=== PATIENT | male | born 1935 | race African-American/Black ===

== ENCOUNTER → 2017-02-08 | Outpatient (CLI) | payer MEDICARE, BC | LOC: OD 08:47 | PROVIDERS: ATTEND Urology | DX: N40.1 Benign prostatic hyperplasia with lower urinary tract symptoms (principal); R97.20 Elevated prostate specific antigen [PSA] | CPT/HCPCS: 36415; 84153 ==

== ENCOUNTER 2017-08-20 12:11 | Inpatient (IN) | payer MEDICARE, BC ==
--- NOTE | 2017-08-20 12:46 | ER Document Report ---
ED General - General Chief Complaint: S/S of Possible Stroke Stated Complaint: PROBABLE STROKE Time Seen by Provider: 08/20/17 12:42 Notes: Patient experienced a witnessed collapse with bystander CPR this morning. Patient and his had just arrived home from driving back from [place]. Patient slept through the entire trip back for 3 hours. When they arrived here in [place], they went to get out of the car and the patient fell backwards unresponsive. Bystander CPR was initiated and EMS was called. EMS reports that when they arrived on the scene, patient was having agonal respirations and further CPR was performed, but no medications were given as the patient awakened and responded to EMS. Patient's says that he has not been feeling well all week saying that he is been tired. He had not complained of any pain such as headache, chest pain, abdominal pain, etc. Patient does have COPD and is on home oxygen at 2 L and had just increased his oxygen to 4 L because he was having more difficulty breathing than usual. Patient has history of hypertension, but according to the , does not have any heart disease, diabetes, or other major illnesses. TRAVEL OUTSIDE OF THE [place] IN LAST 30 DAYS: No - Related Data Allergies/Adverse Reactions: No Known Allergies Allergy (Verified 01/10/14 09:13) Home Medications: Current Home Medications Albuterol Sulfate [Proair Hfa Inhalation Aerosol 8.5 gm Mdi] puff IH PRN [History] Fluticasone/Salmeterol [Advair 500-50 Diskus 28 Dose] 1 inh IH 08/20/17 [History ] Tamsulosin HCl [Flomax 0.4 mg Cap.sr] 0.4 mg PO DAILY 08/20/17 [History] Tiotropium [place] [Spiriva] cap IH 08/20/17 [History] Past Medical History - Social History Smoking Status: Former Smoker - Also has asbestosis and on home O2, usually at 2 L. Family History: Reviewed & Not Pertinent - Past Medical History Cardiac Medical History: Reports: Hx Hypertension - CONTROLLED Denies: Hx Congestive Heart Failure, Hx Coronary Artery Disease, Hx Heart Attack Pulmonary Medical History: Reports: Hx Bronchitis, Hx COPD, Other - Asbestosis Endocrine Medical History: Denies: Hx Diabetes Mellitus Type 1, Hx Diabetes Mellitus Type 2 Musculoskeltal Medical History: Reports Hx Arthritis - Immunizations Hx Diphtheria, Pertussis, Tetanus Vaccination: Yes Review of Systems - Review of Systems -: Yes ROS unobtainable due to patient's medical condition - Patient is unable to answer questions at this time. Physical Exam - Vital signs Vitals: Pulse Resp BP Pulse Ox 77 18 170/71 H 100 08/20/17 12:11 08/20/17 12:11 08/20/17 12:11 08/20/17 12:11 Interpretation: Normal - Notes Notes: PHYSICAL EXAMINATION: GENERAL: Patient has dried blood scattered around his nose and right cheek area. Vital signs are all essentially normal now.. HEAD: Patient complains of pain in the occipital region of the scalp. That area has some very minimal swelling of the soft tissues of the scalp with some abrasion superficially externally. No cuts or other injury that requires sutures etc. EYES: Pupils equal round and reactive to light, extraocular movements intact. NECK: Normal range of motion, supple. No bruits heard. LUNGS: Breath sounds clear and equal bilaterally. HEART: Regular rate and rhythm without murmurs. ABDOMEN: Soft, nontender. No guarding or rebound. No masses felt. No pulsatile masses. No bruits heard. Rectal exam shows an enlarged prostate which is not tender. Stool is yellow. Guaiac sent. BACK: No tenderness throughout entire back. EXTREMITIES: Normal range of motion without pain. Negative Homans bilaterally. NEUROLOGICAL: Patient is confused, asking where he is at. Does not have any memory of what happened to him other than he does remember driving in the car back here from [place] this morning. He does not remember anything following his collapse. Can move all 4 extremities equally. 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 Gait not tested. SKIN: Warm, dry, no rashes. Course - Re-evaluation Re-evalutation: 08/20/17 14:37 Stool guaiac is negative. 08/20/17 14:40 Patient's hemoglobin was 7.8. Packed cells, 2 units, ordered. Spoke with Dr. Jones and patient will be admitted to ICU. 08/20/17 15:05 Patient has had an ultrasound of his abdomen ordered at the suggestion of Dr. Moncada. Nurse reports that patient has coughed up some blood. We removed his nasal trumpet which has blood in it side of it and I am fairly certain that is likely the cause of the patient's blood that we have seen. It was only 1 small amount of red blood produced. He is not having any respiratory difficulty and is not vomiting. - Vital Signs Vital signs: Temp Pulse Resp BP Pulse Ox 98.1 F 77 23 H 176/78 H 95 08/20/17 13:15 08/20/17 12:11 08/20/17 14:00 08/20/17 13:31 08/20/17 14:00 - Laboratory Result Diagrams: 08/20/17 11:37 08/20/17 11:37 Laboratory results interpreted by me: 08/20/17 08/20/17 08/20/17 11:37 11:37 11:37 RBC 3.91 L Hgb 7.8 L Hct 26.3 L MCV 67 L MCH 19.9 L MCHC 29.6 L RDW 19.9 H Glucose 122 H Creatine Kinase 298 H CK-MB (CK-2) 5.33 H Crossmatch 08/20/17 14:09 RBC Hgb Hct MCV MCH MCHC RDW Glucose Creatine Kinase CK-MB (CK-2) Crossmatch See Detail - Diagnostic Test Radiology reviewed: Image reviewed - CTA is negative., Reports reviewed Radiology results interpreted by me: 08/20/17 14:37 Chest x-ray is essentially normal. Critical Care Note - Critical Care Note Total time excluding time spent on procedures (mins): 60 Discharge - Discharge Clinical Impression: Syncope, Anemia, COPD (chronic obstructive pulmonary disease) Condition: Serious Disposition: ADMITTED INPATIENT Admitting Provider: Jones Unit Admitted: [facility]
--- NOTE | 2017-08-20 12:53 | RADIOLOGY REPORT (SQ) ---
EXAM DESCRIPTION: CT HEAD WITHOUT COMPLETED DATE/TIME: 08/20/2017 12:32 pm REASON FOR STUDY: stroke COMPARISON: 04/03/2011. TECHNIQUE: Axial images acquired through the brain without intravenous contrast. Images reviewed wi th bone, brain and subdural windows. Images stored on PACS. All CT scanners at this facility use dose modulation, iterative reconstruction, and/or weight based d osing when appropriate to reduce radiation dose to as low as reasonably achievable (ALARA). [facility]: Dose Right [facility]: CareDose [facility]: Dose Right [facility]: Teradose 4D [facility]: Smart Indigo Identityware RADIATION DOSE: CT Rad equipment meets quality standard of care and radiation dose reduction techniq ues were employed. CTDIvol: 64.6 mGy. DLP: 1163 mGy-cm. mGy. LIMITATIONS: None. FINDINGS: VENTRICLES: Normal size and contour. CEREBRUM: No masses. No hemorrhage. No midline shift. No evidence for acute infarction. Mild spott y low density areas in the white matter consistent with chronic small vessel disease. 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 CEREBELLUM: No masses. No hemorrhage. No alteration of density. No evidence for acute infarction. EXTRAAXIAL SPACES: No fluid collections. No masses. ORBITS AND GLOBE: No intra- or extraconal masses. Normal contour of globe without masses. CALVARIUM: No fracture. PARANASAL SINUSES: No fluid or mucosal thickening. SOFT TISSUES: No mass or hematoma. OTHER: No other significant finding. IMPRESSION: 1. Chronic appearing intracranial changes. No acute abnormality. EVIDENCE OF ACUTE STROKE: NO. Pertinent positive or negative findings of the imaging study reported as a CRITICAL EXAM to ER PIEDADI KLAUDIA at11:49 on 08/20/2017. Category of Critical Exam: Stroke alert. COMMENT: Quality ID # [id number]: Final reports with documentation of one or more dose reduction techniques (e.g., Automated exposure control, adjustment of the mA and/or kV according to patient size, use of iterative reconstruction technique) TECHNICAL DOCUMENTATION: JOB ID: [id number]- All Rights Reserved
--- NOTE | 2017-08-20 12:56 | RADIOLOGY REPORT (SQ) ---
EXAM DESCRIPTION: CHEST SINGLE VIEW COMPLETED DATE/TIME: 08/20/2017 12:39 pm REASON FOR STUDY: stroke COMPARISON: None. NUMBER OF VIEWS: One view. TECHNIQUE: Single frontal radiographic view of the chest acquired. LIMITATIONS: None. FINDINGS: LUNGS AND PLEURA: No opacities, masses or pneumothorax. No pleural effusion. MEDIASTINUM AND HILAR STRUCTURES: No masses. Contour normal. HEART AND VASCULAR STRUCTURES: Heart normal in size. Normal vasculature. BONES: No acute findings. HARDWARE: None in the chest. OTHER: No other significant finding. IMPRESSION: NO SIGNIFICANT RADIOGRAPHIC FINDING IN THE CHEST. TECHNICAL DOCUMENTATION: JOB ID: [id number] [employer]- All Rights Reserved
[2017-08-20 13:02] LABS: PROTHROMBIN TIME 14.3 SEC (11.4-15.4)
[2017-08-20 13:12] LABS: HEMATOCRIT 26.3 % (37.9-51.0); HGB HCT DIFFERENCE -2.9; MEAN CORPUSCULAR HEMOGLOBIN 19.9 pg (27.0-33.4); MEAN CORPUSCULAR HGB CONC 29.6 g/dL (32.0-36.0); MEAN CORPUSCULAR VOLUME 67 fl (80-97); RED BLOOD COUNT 3.91 10^6/uL (4.35-5.55); RED CELL DISTRIBUTION WIDTH 19.9 % (11.5-14.0); WHITE BLOOD COUNT 7.7 10^3/uL (4.0-10.5)
[2017-08-20 13:15] LABS: ALANINE AMINOTRANSFERASE 32 U/L (21-72); ALBUMIN 4.4 g/dL (3.5-5.0); ALKALINE PHOSPHATASE 54 U/L (38-126); ANION GAP 12 (5-19); ASPARTATE AMINO TRANSFERASE 30 U/L (17-59); BILIRUBIN,DIRECT 0.4 mg/dL (0.0-0.4); BILIRUBIN,TOTAL 0.7 mg/dL (0.2-1.3); BLOOD UREA NITROGEN 14 mg/dL (7-20); CARBON DIOXIDE 27 mmol/L (22-30); CHLORIDE 106 mmol/L (98-107); CREATINE KINASE 298 U/L (55-170); GLUCOSE 122 mg/dL (75-110); SODIUM 144.7 mmol/L (137-145); TOTAL PROTEIN 7.3 g/dL (6.3-8.2)
[2017-08-20 13:19] LABS: HEMOGLOBIN 7.8 g/dL (13.5-17.0)
[2017-08-20 13:29] LABS: CREATINE KINASE MB 5.33 ng/mL (<4.55); TROPONIN I < 0.012 ng/mL
[2017-08-20 13:30] LABS: BASOPHILS % (MANUAL) 0 % (0-2); EOSINOPHILS % (MANUAL) 0 % (0-6); LYMPHOCYTES % (MANUAL) 24 % (13-45); TOTAL CELLS COUNTED 100
[2017-08-20 13:32] LABS: ANISOCYTOSIS 2+; HYPOCHROMASIA 1+; MICROCYTOSIS 2+; OVALOCYTES SLIGHT; POIKILOCYTOSIS 1+; TARGET CELLS SLIGHT; TOXIC GRANULATION SLIGHT
[2017-08-20] MEDS ORDERED: NORMAL SALINE 250 ML IV PRN (13:39)
--- NOTE | 2017-08-20 14:07 | EKG REPORT ---
SEVERITY:- ABNORMAL ECG - SINUS RHYTHM LAD, CONSIDER LEFT ANTERIOR FASCICULAR BLOCK : Confirmed by: Isis Lombardi MD 20-Aug-2017 14:06:59
--- NOTE | 2017-08-20 14:13 | RADIOLOGY REPORT (SQ) ---
EXAM DESCRIPTION: CTA CHEST COMPLETED DATE/TIME: 08/20/2017 2:01 pm REASON FOR STUDY: Collapsed COMPARISON: 2016. Recent radiographs. TECHNIQUE: CT scan of the chest performed using helical scanning technique with dynamic intravenous contrast injection. Images reviewed with lung, soft tissue and bone windows. Reconstructed coronal and sagittal MPR images reviewed. Additional 3 dimensional post-processing performed to develop Maximal Intensity Projection images ([place] P). All images stored on PACS. All CT scanners at this facility use dose modulation, iterative reconstruction, and/or weight based d osing when appropriate to reduce radiation dose to as low as reasonably achievable (ALARA). [facility]: Dose Right [facility]: CareDose [facility]: Dose Right [facility]: Teradose 4D [facility]: TareasPlus CONTRAST TYPE AND DOSE: contrast/concentration: Isovue 370.00 mg/ml; Total Contrast Delivered: 74.0 ml; Total Saline Delivered: 80.1 ml Contrast bolus adequate for pulmonary arteries and aorta. RENAL FUNCTION: Creatinine 0.9 RADIATION DOSE: CT Rad equipment meets quality standard of care and radiation dose reduction techniq ues were employed. CTDIvol: 21.6 - 39.7 mGy. DLP: 941 mGy-cm. . LIMITATIONS: Moderately limiting motion artifact. FINDINGS: LUNGS AND PLEURA: COPD with upper lobe bullous emphysema. Motion artifact and scarring. Trace dependent pleural fluid may be present. AORTA AND GREAT VESSELS: No aneurysm. Contrast bolus not optimized for the aorta. HEART: No pericardial effusion. Mild to moderate coronary calcification. PULMONARY ARTERIES: No embolus detected. Peripheral lower lobe branches poorly assessed due to motio n. HILAR AND MEDIASTINAL STRUCTURES: No identified masses or abnormal nodes. HARDWARE: None in the chest. UPPER ABDOMEN: No significant findings. Limited exam. THYROID AND OTHER SOFT TISSUES: No masses. No adenopathy. BONES: No acute or significant finding. 3D MIPS: Confirm above findings. OTHER: No other significant finding. IMPRESSION: 1. Limiting motion. 2. COPD. 3. No gross pulmonary embolus. COMMENT: Quality ID # [id number]: Final reports with documentation of one or more dose reduction techniques (e.g., Automated exposure control, adjustment of the mA and/or kV according to patient size, use of iterative reconstruction technique) TECHNICAL DOCUMENTATION: JOB ID: [id number]- All Rights Reserved
--- NOTE | 2017-08-20 16:06 | RADIOLOGY REPORT (SQ) ---
EXAM DESCRIPTION: U/S ABDOMEN COMPLETE W/DOPPLER COMPLETED DATE/TIME: 08/20/2017 3:47 pm REASON FOR STUDY: Collapsed, post arrest,? Abdominal distention COMPARISON: None. TECHNIQUE: Dynamic and static grayscale images acquired of the abdomen and recorded on PACS. Nbao danny selected color Doppler and spectral images recorded. LIMITATIONS: Body habitus. Patient cooperation issues. Labored breathing. FINDINGS: PANCREAS: Not seen. LIVER: No masses. Echotexture normal. LIVER VASCULATURE: Normal directional flow of the main portal vein and hepatic veins. GALLBLADDER: No stones. Normal wall thickness. No pericholecystic fluid. ULTRASOUND-DETECTED MORGAN'S SIGN: Negative. INTRAHEPATIC DUCTS AND COMMON DUCT: CBD and intrahepatic ducts normal caliber. No filling defects. INFERIOR VENA CAVA: Normal flow. AORTA: No aneurysm. RIGHT KIDNEY:Normal size. Normal echogenicity. No solid or suspicious masses. No hydronephrosis. No c alcifications. LEFT KIDNEY: Toe Puncher notes a small echogenic focus in the cortex at the midpole. Recent CT ches t fails to demonstrate any lesion here, however. SPLEEN: Not imaged. PERITONEAL AND PLEURAL SPACES: No ascites or effusions. OTHER: No other significant finding. IMPRESSION: Limited grossly negative study without acute or suspicious abdominal abnormality visuali zed at ultrasound. TECHNICAL DOCUMENTATION: JOB ID: [id number] [employer]- All Rights Reserved
[2017-08-20] MEDS: IPRATROPIUM/ALBUTEROL 0.5-2.5 MG/3 ML AMPUL NEB PRN (17:19)
--- NOTE | 2017-08-20 17:21 | PDOC CONSULTATION ---
Consultation Consult Date: 08/20/17 Attending physician:: NAOMI PEÑALOZA Consult reason:: Status post cardiorespiratory arrest History of Present Illness Admission Date/PCP: 08/20/17 14:49 NAOMI PEÑALOZA MD Patient complains of: Status post cardiorespiratory arrest History of Present Illness: Patient experienced a witnessed collapse with bystander CPR this morning. Patient and his had just arrived home from driving back from [place]. Patient slept through the entire trip back for 3 hours. When they arrived here in [place], they went to get out of the car and the patient fell backwards unresponsive. Bystander CPR was initiated and EMS was called. EMS reports that when they arrived on the scene, patient was having agonal respirations and further CPR was performed, but no medications were given as the patient awakened and responded to EMS. Patient's says that he has not been feeling well all week saying that he is been tired. He had not complained of any pain such as headache, chest pain, abdominal pain, etc. Patient does have COPD and is on home oxygen at 2 L and had just increased his oxygen to 4 L because he was having more difficulty breathing than usual. Patient has history of hypertension, but according to the , does not have any heart disease, diabetes, or other major illnesses. This history was reviewed and confirmed. Patient claims that he recently saw a veterinarian either at [facility] or at [facility] and had a stress test performed. Patient does have history of loud habitual snoring. He has never been diagnosed to have sleep apnea. Patient denied any prior history of cardiac problems. He does have history of COPD and asbestosis. He is on some home oxygen. Patient had no nausea vomiting or diaphoresis or any feeling of palpitations either preceding or post episode. There is no post ictal state noted not any convulsions noted. There is no history of prior seizure disorder. Past Medical History Cardiac Medical History: Reports: Hypertension - CONTROLLED Denies: Congestive Heart Failure, Coronary Artery Disease, Myocardial Infarction Pulmonary Medical History: Reports: Bronchitis, Chronic Obstructive Pulmonary Disease (COPD), Other - Asbestosis Denies: Asthma, Pneumonia Neurological Medical History: Denies: Seizures Endocrine Medical History: Denies: Diabetes Mellitus Type 1, Diabetes Mellitus Type 2 GI Medical History: Denies: Hepatitis, Hiatal Hernia Musculoskeltal Medical History: Reports: Arthritis Psychiatric Medical History: Denies: Depression Hematology: Reports: Anemia - TAKES IRON Denies: Sickle Cell Disease Past Surgical History Past Surgical History: Denies: Pacemaker Social History Information Source: Relative Smoking Status: Former Smoker - Also has asbestosis and on home O2, usually at 2 L. Frequency of Alcohol Use: None Hx Recreational Drug Use: No Hx Prescription Drug Abuse: No - Advance Directive Resuscitation Status: Full Code Surrogate healthcare decision maker:: Patient's Family History Family History: Hypertension Parental Family History Reviewed: Yes Children Family History Reviewed: Yes Sibling(s) Family History Reviewed.: Yes Medication/Allergy Home Medications: Albuterol Sulfate [Proair Hfa Inhalation Aerosol 8.5 gm Mdi] 2 puff IH Q6HP PRN 08/20/17 Fluticasone/Salmeterol [Advair 500-50 Diskus 28 Dose] 1 inh IH Q12 08/20/17 Tamsulosin HCl [Flomax 0.4 mg Cap.sr] 0.4 mg PO DAILY 08/20/17 Tiotropium [place] [Spiriva] 2 cap IH DAILY 08/20/17 Allergies/Adverse Reactions: No Known Allergies Allergy (Verified 01/10/14 09:13) Review of Systems Review of Systems: Please see history of present illness and past medical history as wall. Constitutional: No fever or chills reported. Head : No recent chronic headaches, recent head injury. Eyes: No recent eye pain, diplopia, redness, discharge, acute visual changes. Ears: No recent chronic ear pain, acute hearing loss, ear discharge. Oral cavity: No recent ulcerations, bleeding, oral cavity discomfort. Neck: No recent acute neck pain reported. Hematologic: No recent easy bruising or bleeding or hematologic malignancy reported. Lymphatic: No recent lymphatic malignancy, chronic lymphadenopathy reported yet Cardiovascular system review: See history of present illness. Respiratory system review: No recent chronic cough, hemoptysis, blood clots in the lungs reported. Shortness of breath on exertion. Patient has history of COPD and asbestosis on chronic oxygen. Gastrointestinal system review: Negative for any recent acute or chronic abdominal pain, hematemesis, melena, recent change in bowel habits. Genitourinary system review: No recent acute or chronic hematuria, flank pain, UTI etc. reported. Skin system review: Negative for any recent abnormal bruising, no rash, no pruritus reported. Neurologic: No prior history of strokes, mini strokes, seizure disorder. Psychologic: No history of major psychosis or major depression reported. Musculoskeletal: Minor aches and pains reported. No acute joint swelling reported. Endocrine: No recent polyuria, polydipsia, recent heat or cold intolerance. Physical Exam Vital Signs: Temp Pulse Resp BP Pulse Ox 98.1 F 77 20 170/72 H 100 08/20/17 13:15 08/20/17 15:00 08/20/17 16:44 08/20/17 15:45 08/20/17 16:44 Exam: GENERAL: well-nourished and in no acute distress. Alert and oriented x3 HEAD: Atraumatic, normocephalic. EYES: Pupils equal round and reactive to light, extraocular movements intact, sclera anicteric, conjunctiva are normal. ENT: TMs normal, nares patent, oropharynx clear without exudates. Moist mucous membranes. No oral ulcerations or bleeding gums noted NECK: supple without lymphadenopathy. Trachea is central. No cervical or axillary lymphadenopathy noted. Carotids are 2+, JVD WNL LUNGS: Respiration seems nonlabored, no significant accessory muscle action noted. Breath sounds clear to auscultation bilaterally and equal noted. No wheezes rales or rhonchi noted. No significant dullness noted on percussion. CHEST: Palpation of the chest wall shows no significant chest wall tenderness. No other significant abnormalities noted. 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 ABDOMEN: Soft, no significant tenderness appreciated, normoactive bowel sounds. No guarding, no rebound. No rigidity noted . No masses appreciated. EXTREMITIES: Pedal pulses are 1-2+, no calf tenderness noted. No clubbing or cyanosis.trace pedal edema noted NEUROLOGICAL: Focused neurological exam showed no significant neurologic deficit. Normal speech, no focal weakness appreciated. PSYCH: Normal mood, normal affect. Judgment and insight within normal limits. SKIN: No significant ecchymosis, rash, ulcerations or signs of pruritus noted. MUSCULOSKELETAL EXAM: No significant joint swelling noted. Results EKG Comments: Sinus rhythm, no acute ST-T wave changes noted. Impressions: Chest X-Ray 08/20/17 12:17 IMPRESSION: NO SIGNIFICANT RADIOGRAPHIC FINDING IN THE CHEST. Head CT 08/20/17 12:17 IMPRESSION: 1. Chronic appearing intracranial changes. No acute abnormality. EVIDENCE OF ACUTE STROKE: NO. Pertinent positive or negative findings of the imaging study reported as a CRITICAL EXAM to ER PROVIDER at11:49 on 08/20/2017. Category of Critical Exam: Stroke alert. Chest/Abdomen CTA 08/20/17 13:08 IMPRESSION: 1. Limiting motion. 2. COPD. 3. No gross pulmonary embolus. Abdomen Ultrasound 08/20/17 14:44 IMPRESSION: Limited grossly negative study without acute or suspicious abdominal abnormality visualized at ultrasound. Assessment & Plan - Diagnosis (1) History of successful cardiopulmonary resuscitation Is this a current diagnosis for this admission?: Yes (2) Syncope Qualifiers: Syncope type: unspecified Qualified Code(s): R55 - Syncope and collapse Is this a current diagnosis for this admission?: Yes (3) COPD exacerbation Is this a current diagnosis for this admission?: Yes (4) Anemia Qualifiers: Anemia type: unspecified type Qualified Code(s): D64.9 - Anemia, unspecified Is this a current diagnosis for this admission?: Yes - Notes Notes: History of successful CPR: Patient had bystander CPR following a syncopal spell. Patient was noted to have agonal respiration per history. Patient currently is stable and seems alert and oriented. Syncope: Exact etiology not clear but could be multiple including orthostatic hypotension, cardiac dysrhythmia, respiratory related since patient has severe COPD. At this point will recommend observation and cardiac monitoring in the unit. COPD exacerbation: Continue home therapy oxygen supplementation and other therapy. May consider pulmonary evaluation. Anemia: Patient had drop in hemoglobin. Exact etiology not clear. I am told by the ER physician that stool guaiac was negative. Have recommended that patient have a abdominal ultrasound to rule out any internal bleed. 2D echo results reviewed. It showed RV enlargement but LVEF seems relatively well-preserved. - Time Time Spent: 30 to 50 Minutes - CODE STATUS was discussed, patient remains full code. Surrogate decision-maker patient spouse. Multiple medical problems were addressed. More than 50% of the time spent coordinating care, discussing management plans with involved caregivers. Management plans discussed with involved personnels. Medical decision making was of moderate to high complexity , patient's has multiple comorbidities. Medications reviewed and adjusted accordingly: Yes
--- NOTE | 2017-08-20 17:38 | XCELERA REPORT ---
[address] [address] Transthoracic Echocardiogram Report Name: BROCK MORGAN Age: 82 yrs Gender: Male : 1935 Patient Status: Inpatient Patient Location: [address] Study Date: 08/20/2017 02:25 PM Height: 70 in Weight: 180 lb BSA: 2.0 m2 Procedure: A complete two-dimensional transthoracic echocardiogram was performed (2D, M-mode, spectral and color flow Doppler). The study was technically difficult with many images being suboptimal in quality. Reason For Study: syncope Ordering Physician: BART GILBERT Performed By: Jennifer Aguilar Interpretation Summary The study was technically difficult with many images being suboptimal in quality. The left ventricular ejection fraction is normal. There is mild concentric left ventricular hypertrophy. The left ventricle is grossly normal size. Doppler measurements suggest pseudonormalized left ventricular relaxation, which is associated with grade II/IV or mild to moderate diastolic dysfunction Wall motion cannot be accurately commented on, but no definite regional wall motion abnormalities noted. The right ventricle is borderline dilated. The right ventricular systolic function is normal. The right atrium is mildly dilated. The left atrial size is normal. There is a trace amount of mitral regurgitation There is no mitral valve stenosis. No aortic regurgitation is present. There is no aortic valve stenosis There is a trace to mild amount of tricuspid regurgitation There is mild pulmonary hypertension by echo Right ventricular systolic pressure is estimated to be elevated at 30- 40mmHg. The aortic root is not well visualized. The inferior vena cava was not well visualized Minimal pericardial effusion. MMode/2D Measurements & Calculations RVDd: 3.3 cm LVIDd: 3.9 cm FS: 37.6 % Ao root diam: 3.1 cm IVSd: 1.2 cm LVIDs: 2.5 cm EDV(Teich): 67.7 ml LVPWd: 1.2 cm ESV(Teich): 21.5 ml Ao root area: 7.4 cm2 EF(Teich): 68.2 % LA dimension: 2.4 cm LVOT diam: 2.0 cm LVOT area: 3.3 cm2 Doppler Measurements & Calculations MV E max kanwal: MV P1/2t max kanwal: Ao V2 max: LV V1 max P.6 cm/sec 100.0 cm/sec 149.4 cm/sec 7.1 mmHg MV A max kanwal: MV P1/2t: 63.7 msec Ao max PG: LV V1 max: 105.5 cm/sec MVA(P1/2t): 3.5 cm2 8.9 mmHg 133.3 cm/sec MV E/A: 0.95 MV dec slope: PANKAJ(V,D): 2.9 cm2 459.6 cm/sec2 PA V2 max: TR max kanwal: 106.1 cm/sec 276.9 cm/sec PA max PG: TR max P.7 mmHg 4.5 mmHg Left Ventricle The left ventricle is grossly normal size. There is mild concentric left ventricular hypertrophy. The left ventricular ejection fraction is normal. Doppler measurements suggest pseudonormalized left ventricular relaxation, which is associated with grade II/IV or mild to moderate diastolic dysfunction. Wall motion cannot be accurately commented on, but no definite regional wall motion abnormalities noted. Right Ventricle The right ventricle is borderline dilated. There is normal right ventricular wall thickness. The right ventricular systolic function is normal. Atria The right atrium is mildly dilated. The left atrial size is normal. Interarterial septum not well visualized and not well dopplered. Cannot comment on ASD/PFO presence. Mitral Valve There is mild mitral leaflet calcification. There is no mitral valve stenosis. There is a trace amount of mitral regurgitation. Aortic Valve The aortic valve is not well visualized secondary to technical limitations. There is no aortic valve stenosis. No aortic regurgitation is present. Tricuspid Valve The tricuspid valve is not well visualized secondary to technical limitations. There is no tricuspid stenosis. There is a trace to mild amount of tricuspid regurgitation. There is mild pulmonary hypertension by echo. Right ventricular systolic pressure is estimated to be elevated at 30-40mmHg. Pulmonic Valve The pulmonic valve is not well visualized. Great Vessels The aortic root is not well visualized. The inferior vena cava was not well visualized. Effusions Minimal pericardial effusion. : BART GILBERT > Jeremy Moncada
[2017-08-20 17:48] LABS: STAIN REACTIVITY CHECK ACCEPTABLE
[2017-08-20 18:19] LABS: TROPONIN I < 0.012 ng/mL
[2017-08-20] MEDS: ACETAMINOPHEN 325 MG TABLET PO PRN (18:40)
[2017-08-20] MEDS: NORMAL SALINE 1000 ML 1,000 ML IV PRN ×2 (18:41→21:30)
[2017-08-20 18:55] LABS: FERRITIN 4.62 ng/mL (17.9-464.0)
--- NOTE | 2017-08-20 19:02 | RADIOLOGY REPORT (SQ) ---
EXAM DESCRIPTION: MRI HEAD WITHOUT COMPLETED DATE/TIME: 08/20/2017 4:19 pm REASON FOR STUDY: Syncope COMPARISON: Noncontrast head CT 08/20/2017 TECHNIQUE: Multiplanar imaging includes non-contrasted T1, T2, FLAIR, and diffusion with ADC map seq uences. Images stored on PACS. LIMITATIONS: None. FINDINGS: ANATOMY: No anomalies. Normal vascular flow voids. Pituitary fossa normal. CSF SPACES: Mild central and peripheral prominence. No hemorrhage. CEREBRUM: Right occipital encephalomalacia is present with adjacent T2 prolongation, consistent with sequela of remote ischemic injury. Scattered foci of periventricular and subcortical white matter T2 prolongation is consistent with background of chronic microvascular ischemic change. Negron- white ma tter differentiation are otherwise normal. Mild central on peripheral volume loss consistent with ag e-related involutional change. No hemorrhage. POSTERIOR FOSSA: No signal alteration. No hemorrhage. No edema, masses or mass effect. Internal bakari tory canals, cerebello-pontine angles, mastoids normal. DIFFUSION IMAGING: Negative for acute or sub-acute infarction. ORBITS: No masses. Globes normal. PARANASAL SINUSES: Scant fluid is seen within the right maxillary sinus scattered right ethmoid opac ities are present. OTHER: No other significant finding. IMPRESSION: Right occipital encephalomalacia consistent with sequela of remote ischemic injury. Kimberley kground of chronic microvascular and age-related involutional change. EVIDENCE OF ACUTE STROKE: NO. TECHNICAL DOCUMENTATION: JOB ID: [id number] [employer]- All Rights Reserved
[2017-08-20 19:25] LABS: FOLATE 7.17 ng/mL (>2.76)
[2017-08-20] MEDS: HEPARIN SOD (PORCINE) 5,000 UNIT/ML 1 ML SYRINGE SUBCUT SCH (21:04)
[2017-08-20] MEDS: OXYCODONE HCL IR 5 MG TABLET PO PRN (21:05)
[2017-08-20] MEDS: PANTOPRAZOLE SODIUM 40 MG VIAL IV SCH (21:05)
[2017-08-20] MEDS: FLUTICASONE/SALMETEROL DISKUS 500-50 MCG/DOSE IH SCH (21:06)
[2017-08-20] MEDS ORDERED: FAMOTIDINE INJ/PF 20 MG/2 ML SDV IV SCH (22:00)
[2017-08-21 00:04] LABS: TROPONIN I < 0.012 ng/mL
[2017-08-21] MEDS: ACETAMINOPHEN 325 MG TABLET PO PRN (00:20)
[2017-08-21] MEDS: OXYCODONE HCL IR 5 MG TABLET PO PRN ×2 (04:33→14:19)
[2017-08-21 05:29] LABS: HEMATOCRIT 30.3 % (37.9-51.0); HEMOGLOBIN 9.3 g/dL (13.5-17.0); HGB HCT DIFFERENCE -2.4; MEAN CORPUSCULAR HEMOGLOBIN 21.2 pg (27.0-33.4); MEAN CORPUSCULAR HGB CONC 30.7 g/dL (32.0-36.0); MEAN CORPUSCULAR VOLUME 69 fl (80-97); RED CELL DISTRIBUTION WIDTH 21.8 % (11.5-14.0); WHITE BLOOD COUNT 12.1 10^3/uL (4.0-10.5)
[2017-08-21 06:00] LABS: BASOPHILS % (MANUAL) 0 % (0-2); EOSINOPHILS % (MANUAL) 0 % (0-6); LYMPHOCYTES % (MANUAL) 10 % (13-45); TOTAL CELLS COUNTED 100
[2017-08-21 06:03] LABS: ANISOCYTOSIS 3+; HYPOCHROMASIA 2+; MICROCYTOSIS 2+; TOXIC VACUOLATION PRESENT
[2017-08-21 06:04] LABS: ACANTHOCYTES 2+; BURR CELLS 1+; OVALOCYTES 1+; POIKILOCYTOSIS 3+; SCHISTOCYTES 1+; TARGET CELLS 1+
[2017-08-21 06:05] LABS: PLATELET CLUMPS PRESENT
[2017-08-21] MEDS: HEPARIN SOD (PORCINE) 5,000 UNIT/ML 1 ML SYRINGE SUBCUT SCH ×3 (06:21→21:10)
[2017-08-21 06:38] LABS: TROPONIN I < 0.012 ng/mL
[2017-08-21 06:58] LABS: ALANINE AMINOTRANSFERASE 32 U/L (21-72); ALBUMIN 3.9 g/dL (3.5-5.0); ALKALINE PHOSPHATASE 54 U/L (38-126); ANION GAP 11 (5-19); ASPARTATE AMINO TRANSFERASE 34 U/L (17-59); BILIRUBIN,DIRECT 0.3 mg/dL (0.0-0.4); BILIRUBIN,TOTAL 1.3 mg/dL (0.2-1.3); BLOOD UREA NITROGEN 12 mg/dL (7-20); CALCIUM 8.9 mg/dL (8.4-10.2); CARBON DIOXIDE 26 mmol/L (22-30); CHLORIDE 107 mmol/L (98-107); CREATININE RESULT 0.82 mg/dL (0.52-1.25); GLUCOSE 103 mg/dL (75-110); POTASSIUM 4.2 mmol/L (3.6-5.0); SODIUM 144.1 mmol/L (137-145); TOTAL PROTEIN 6.6 g/dL (6.3-8.2)
[2017-08-21] MEDS: IPRATROPIUM/ALBUTEROL 0.5-2.5 MG/3 ML AMPUL NEB PRN ×3 (08:10→22:53)
[2017-08-21] MEDS: NORMAL SALINE 1000 ML 1,000 ML IV PRN (09:09)
[2017-08-21] MEDS: PANTOPRAZOLE SODIUM 40 MG VIAL IV SCH ×2 (09:16→21:09)
[2017-08-21] MEDS: DOCUSATE SODIUM 100 MG CAPSULE PO SCH (09:16)
[2017-08-21] MEDS: FLUTICASONE/SALMETEROL DISKUS 500-50 MCG/DOSE IH SCH ×2 (10:42→21:09)
[2017-08-21] MEDS: TIOTROPIUM BROMIDE DPI 5 CAP/KIT (18 MCG/CAP) IH SCH (10:42)
--- NOTE | 2017-08-21 10:44 | PDOC H&P ---
History of Present Illness Admission Date/PCP: 08/20/17 14:49 NAOMI PEÑALOZA MD Patient complains of: sycopal episode History of Present Illness: Patient experienced a witnessed collapse with bystander CPR this morning. Patient and his had just arrived home from driving back from [place]. Patient slept through the entire trip back for 3 hours. When they arrived here in [place], they went to get out of the car and the patient fell backwards unresponsive. Bystander CPR was initiated and EMS was called. EMS reports that when they arrived on the scene, patient was having agonal respirations and further CPR was performed, but no medications were given as the patient awakened and responded to EMS. Patient's says that he has not been feeling well all week saying that he is been tired. He had not complained of any pain such as headache, chest pain, abdominal pain, etc. Patient does have COPD and is on home oxygen at 2 L and had just increased his oxygen to 4 L because he was having more difficulty breathing than usual. Patient has history of hypertension, but according to the , does not have any heart disease, diabetes, or other major illnesses. This history was reviewed and confirmed. Patient claims that he recently saw a crew person either at [facility] or at [facility] and had a stress test performed. Patient does have history of loud habitual snoring. He has never been diagnosed to have sleep apnea. Patient denied any prior history of cardiac problems. He does have history of COPD and asbestosis. He is on some home oxygen. Patient had no nausea vomiting or diaphoresis or any feeling of palpitations either preceding or post episode. There is no post ictal state noted not any convulsions noted. There is no history of prior seizure disorder. Past Medical History Cardiac Medical History: Reports: Hypertension - CONTROLLED Denies: Congestive Heart Failure, Coronary Artery Disease, Myocardial Infarction Pulmonary Medical History: Reports: Bronchitis, Chronic Obstructive Pulmonary Disease (COPD), Other - Asbestosis Denies: Asthma, Pneumonia Neurological Medical History: Denies: Seizures Endocrine Medical History: Denies: Diabetes Mellitus Type 1, Diabetes Mellitus Type 2 GI Medical History: Denies: Hepatitis, Hiatal Hernia Musculoskeltal Medical History: Reports: Arthritis Psychiatric Medical History: Denies: Depression Hematology: Reports: Anemia - TAKES IRON Denies: Sickle Cell Disease Past Surgical History Past Surgical History: Denies: Pacemaker Social History Smoking Status: Former Smoker - Also has asbestosis and on home O2, usually at 2 L. Cigarettes Packs Per Day: 1 Number of Years Smokin Last Time Smoked: 2003. Frequency of Alcohol Use: None Hx Recreational Drug Use: No Hx Prescription Drug Abuse: No - Advance Directive Resuscitation Status: Full Code Family History Family History: Reviewed & Not Pertinent, Hypertension Parental Family History Reviewed: Yes Children Family History Reviewed: Yes Sibling(s) Family History Reviewed.: Yes Medication/Allergy Home Medications: Albuterol Sulfate [Proair Hfa Inhalation Aerosol 8.5 gm Mdi] 2 puff IH Q6HP PRN 08/20/17 Fluticasone/Salmeterol [Advair 500-50 Diskus 28 Dose] 1 inh IH Q12 08/20/17 Tamsulosin HCl [Flomax 0.4 mg Cap.sr] 0.4 mg PO DAILY 08/20/17 Tiotropium [place] [Spiriva] 2 cap IH DAILY 08/20/17 Allergies/Adverse Reactions: No Known Allergies Allergy (Verified 01/10/14 09:13) Review of Systems Constitutional: PRESENT: fatigue, weakness. ABSENT: chills, fever(s), headache( s), weight gain, weight loss Eyes: ABSENT: visual disturbances Ears: ABSENT: hearing changes Cardiovascular: ABSENT: chest pain, dyspnea on exertion, edema, orthropnea, palpitations Respiratory: ABSENT: cough, hemoptysis Gastrointestinal: ABSENT: abdominal pain, constipation, diarrhea, hematemesis, hematochezia, nausea, vomiting Genitourinary: ABSENT: dysuria, hematuria Musculoskeletal: ABSENT: joint swelling Integumentary: ABSENT: rash, wounds Neurological: ABSENT: abnormal gait, abnormal speech, confusion, dizziness, focal weakness, syncope Psychiatric: ABSENT: anxiety, depression, homidical ideation, suicidal ideation Endocrine: ABSENT: cold intolerance, heat intolerance, menstrual abnormalities, polydipsia, polyuria Hematologic/Lymphatic: ABSENT: easy bleeding, easy bruising, lymphadenopathy Physical Exam Vital Signs: Temp Pulse Resp BP Pulse Ox 98.9 F 80 25 H 195/87 H 96 08/20/17 17:21 08/20/17 17:21 08/20/17 17:21 08/20/17 17:21 08/20/17 17:21 Intake & Output 08/19/17 08/20/17 08/21/17 06:59 06:59 06:59 Intake Total 0 Balance 0 Weight 78.2 kg General appearance: PRESENT: no acute distress, well-developed, well-nourished Head exam: PRESENT: atraumatic, normocephalic Eye exam: PRESENT: conjunctiva pink, EOMI, PERRLA. ABSENT: scleral icterus Ear exam: PRESENT: normal external ear exam Mouth exam: PRESENT: moist, tongue midline Neck exam: PRESENT: full ROM. ABSENT: carotid bruit, JVD, lymphadenopathy, thyromegaly Respiratory exam: PRESENT: clear to auscultation chetan Cardiovascular exam: PRESENT: RRR. ABSENT: diastolic murmur, rubs, systolic murmur Pulses: PRESENT: normal dorsalis pedis pul, +2 pedal pulses bilateral Vascular exam: PRESENT: normal capillary refill GI/Abdominal exam: PRESENT: normal bowel sounds, soft. ABSENT: distended, guarding, mass, organolmegaly, rebound, tenderness Rectal exam: PRESENT: deferred Neurological exam: PRESENT: alert, awake, oriented to person, oriented to place , oriented to time, oriented to situation, CN II-XII grossly intact. ABSENT: motor sensory deficit Psychiatric exam: PRESENT: appropriate affect, normal mood. ABSENT: homicidal ideation, suicidal ideation Skin exam: PRESENT: dry, intact, warm. ABSENT: cyanosis, rash Results Impressions: Chest X-Ray 08/20/17 12:17 IMPRESSION: NO SIGNIFICANT RADIOGRAPHIC FINDING IN THE CHEST. Head CT 08/20/17 12:17 IMPRESSION: 1. Chronic appearing intracranial changes. No acute abnormality. EVIDENCE OF ACUTE STROKE: NO. Pertinent positive or negative findings of the imaging study reported as a CRITICAL EXAM to ER PROVIDER at11:49 on 08/20/2017. Category of Critical Exam: Stroke alert. Chest/Abdomen CTA 08/20/17 13:08 IMPRESSION: 1. Limiting motion. 2. COPD. 3. No gross pulmonary embolus. Abdomen Ultrasound 08/20/17 14:44 IMPRESSION: Limited grossly negative study without acute or suspicious abdominal abnormality visualized at ultrasound. Assessment & Plan - Diagnosis (1) Anemia Qualifiers: Anemia type: unspecified type Qualified Code(s): D64.9 - Anemia, unspecified Is this a current diagnosis for this admission?: Yes Plan: Most likely a chronic will get the iron study get the stool for the guaiac and consult the hematology and patient's already received the 2 units of the blood (2) History of successful cardiopulmonary resuscitation Is this a current diagnosis for this admission?: Yes Plan: Unclear etiology we will consult the cardiology (3) Syncope Qualifiers: Syncope type: unspecified Qualified Code(s): R55 - Syncope and collapse Is this a current diagnosis for this admission?: Yes Plan: Patient MRI of the head is negative and cardiac enzymes all negative Most likely related to the patient have a severe COPD and patients may be hypoxic with anemia make the the patient's the syncopal episode Will continues to work up with the cardiology We will continue to monitor the patient's (4) COPD (chronic obstructive pulmonary disease) Qualifiers: Emphysema type: unspecified Is this a current diagnosis for this admission?: Yes Plan: Patients continues to DuoNeb nebulizer and further pulmonary evaluations - Time Time Spent: 30 to 50 Minutes Critical Time spent with patient: 25-34 minutes Medications reviewed and adjusted accordingly: Yes Anticipated discharge: Home Within: Other - Inpatient Certification Medical Necessity: Need Close Monitoring Due to Risk of Patient Decompensation - admit in icu, Need For IV Fluids - Plan Summary Plan Summary: Very extensive workup with the patient's done in the emergency departments and examined the patient and discussed with the family and the bedside and admit the patient in the ICU
--- NOTE | 2017-08-21 10:49 | PDOC PROGRESS REPORT ---
Subjective Progress Note for:: 08/21/17 Subjective:: Patient is feeling much better this morning She has denied any chest pain At any shortness of the breath but according to the nurses every time patient's move patients need a oxygens Patient have a severe COPD and currently using the oxygen at nighttime Physical Exam Vital Signs: Temp Pulse Resp BP Pulse Ox 98.9 F 66 22 H 157/73 H 90 L 08/21/17 08:00 08/21/17 08:18 08/21/17 10:00 08/21/17 09:10 08/21/17 09:10 Intake & Output 08/20/17 08/21/17 08/22/17 06:59 06:59 06:59 Intake Total 2958 220 Output Total 950 200 Balance 2007 Weight 79.1 kg General appearance: PRESENT: no acute distress, well-developed, well-nourished Head exam: PRESENT: atraumatic, normocephalic Eye exam: PRESENT: conjunctiva pink, EOMI, PERRLA. ABSENT: scleral icterus Ear exam: PRESENT: normal external ear exam Mouth exam: PRESENT: moist, tongue midline Neck exam: PRESENT: full ROM. ABSENT: carotid bruit, JVD, lymphadenopathy, thyromegaly Respiratory exam: PRESENT: clear to auscultation chetan Cardiovascular exam: PRESENT: RRR. ABSENT: diastolic murmur, rubs, systolic murmur Pulses: PRESENT: normal dorsalis pedis pul, +2 pedal pulses bilateral Vascular exam: PRESENT: normal capillary refill GI/Abdominal exam: PRESENT: normal bowel sounds, soft. ABSENT: distended, guarding, mass, organolmegaly, rebound, tenderness Rectal exam: PRESENT: deferred Neurological exam: PRESENT: alert, awake, oriented to person, oriented to place , oriented to time, oriented to situation, CN II-XII grossly intact. ABSENT: motor sensory deficit Psychiatric exam: PRESENT: appropriate affect, normal mood. ABSENT: homicidal ideation, suicidal ideation Skin exam: PRESENT: dry, intact, warm. ABSENT: cyanosis, rash Results Laboratory Results: 08/21/17 05:12 08/21/17 05:12 08/20/17 08/21/17 08/21/17 17:15 05:12 05:12 WBC 12.1 H RBC 4.40 Hgb 9.3 L Hct 30.3 L MCV 69 L MCH 21.2 L MCHC 30.7 L RDW 21.8 H Plt Count 292 Seg Neutrophils % Not Reportable Lymphocytes % Not Reportable Monocytes % Not Reportable Eosinophils % Not Reportable Basophils % Not Reportable Absolute Neutrophils Not Reportable Absolute Lymphocytes Not Reportable Absolute Monocytes Not Reportable Absolute Eosinophils Not Reportable Absolute Basophils Not Reportable Sodium 144.1 Potassium 4.2 Chloride 107 Carbon Dioxide 26 Anion Gap 11 BUN 12 Creatinine 0.82 Est GFR ( Amer) > 60 Est GFR (Non-Af Amer) > 60 Glucose 103 Calcium 8.9 Iron < 10.1 L TIBC 461 H % Saturation UNABLE TO CALCULATE Ferritin 4.62 L Total Bilirubin 1.3 AST 34 ALT 32 Alkaline Phosphatase 54 Total Protein 6.6 Albumin 3.9 Vitamin B12 856.0 Folate 7.17 08/20/17 08/20/17 08/20/17 17:15 17:15 23:15 Creatine Kinase 480 H 559 H CK-MB (CK-2) 14.60 H Troponin I < 0.012 08/20/17 08/21/17 08/21/17 23:15 05:12 05:12 Creatine Kinase 572 H CK-MB (CK-2) 13.90 H 11.00 H Troponin I < 0.012 < 0.012 Impressions: Chest X-Ray 08/20/17 12:17 IMPRESSION: NO SIGNIFICANT RADIOGRAPHIC FINDING IN THE CHEST. Head CT 08/20/17 12:17 IMPRESSION: 1. Chronic appearing intracranial changes. No acute abnormality. EVIDENCE OF ACUTE STROKE: NO. Pertinent positive or negative findings of the imaging study reported as a CRITICAL EXAM to ER PROVIDER at11:49 on 08/20/2017. Category of Critical Exam: Stroke alert. Chest/Abdomen CTA 08/20/17 13:08 IMPRESSION: 1. Limiting motion. 2. COPD. 3. No gross pulmonary embolus. Head MRI 08/20/17 13:56 IMPRESSION: Right occipital encephalomalacia consistent with sequela of remote ischemic injury. Background of chronic microvascular and age-related involutional change. EVIDENCE OF ACUTE STROKE: NO. Abdomen Ultrasound 08/20/17 14:44 IMPRESSION: Limited grossly negative study without acute or suspicious abdominal abnormality visualized at ultrasound. Assessment & Plan - Diagnosis (1) Anemia Qualifiers: Anemia type: unspecified type Qualified Code(s): D64.9 - Anemia, unspecified Is this a current diagnosis for this admission?: Yes Plan: Status post blood transfusions (2) History of successful cardiopulmonary resuscitation Is this a current diagnosis for this admission?: Yes Plan: Unclear etiology we will consult the cardiology (3) Syncope Qualifiers: Syncope type: unspecified Qualified Code(s): R55 - Syncope and collapse Is this a current diagnosis for this admission?: Yes Plan: Patient MRI of the head is negative and cardiac enzymes all negative Most likely related to the patient have a severe COPD and patients may be hypoxic with anemia make the the patient's the syncopal episode Will continues to work up with the cardiology We will continue to monitor the patient's (4) COPD (chronic obstructive pulmonary disease) Qualifiers: Emphysema type: unspecified Is this a current diagnosis for this admission?: Yes Plan: Consult the pulmonary with a severe COPD - Time Time Spent with patient: 15-24 minutes Medications reviewed and adjusted accordingly: Yes Anticipated discharge: Home Within: Other - Inpatient Certification Medical Necessity: Need Close Monitoring Due to Risk of Patient Decompensation Post Hospital Care: D/[employer] Educator Documentation - Plan Summary Plan Summary: continue to current medications
--- NOTE | 2017-08-21 13:18 | PDOC CONSULTATION ---
Consultation Consult Date: 08/21/17 Attending physician:: ILIANA GERMAIN Consult reason:: anemia, likely gi bleed History of Present Illness Admission Date/PCP: 08/20/17 14:49 NAOMI PEÑALOZA MD Patient complains of: fatigue, weakness, black stool History of Present Illness: 82-year-old male who presents with hemoglobin in the 6-7 range, syncopal episode , hypotensive, near cardiogenic shock, was seen here at [facility] ED, has been in the ICU now for 24 hours. He was given 2 units of packed red blood cell, doing much better today. He apparently was traveling back from [place], on the way back he got out of the car and then passed out. Of note, he tells me over the last week he has been quite constipated then in the last 3-4 days had a large BM, with the use of laxatives, that BM was very dark, tarry, but he did not have any other episodes of that. That seems to be the only episode he had. In review of his records, he does have history of GI bleed. He apparently did have a scope by Dr. 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 Upon presentation his ferritin was 4, he likely did have GI bleed over the last few weeks. Past Medical History Cardiac Medical History: Reports: Hypertension - CONTROLLED Denies: Congestive Heart Failure, Coronary Artery Disease, Myocardial Infarction Pulmonary Medical History: Reports: Bronchitis, Chronic Obstructive Pulmonary Disease (COPD), Other - Asbestosis Denies: Asthma, Pneumonia Neurological Medical History: Denies: Seizures Endocrine Medical History: Denies: Diabetes Mellitus Type 1, Diabetes Mellitus Type 2 GI Medical History: Denies: Hepatitis, Hiatal Hernia Musculoskeltal Medical History: Reports: Arthritis Psychiatric Medical History: Denies: Depression Hematology: Reports: Anemia - TAKES IRON Denies: Sickle Cell Disease Past Surgical History Past Surgical History: Reports: Other - EGD and colonoscopy multiple times Denies: Pacemaker Social History Information Source: Patient Smoking Status: Former Smoker - Also has asbestosis and on home O2, usually at 2 L. Cigarettes Packs Per Day: 1 Number of Years Smokin Last Time Smoked: 2003. Frequency of Alcohol Use: None Hx Recreational Drug Use: No Hx Prescription Drug Abuse: No - Advance Directive Resuscitation Status: Full Code Family History Family History: Reviewed & Not Pertinent, Hypertension Parental Family History Reviewed: Yes Children Family History Reviewed: Yes Sibling(s) Family History Reviewed.: Yes Medication/Allergy Home Medications: Albuterol Sulfate [Proair Hfa Inhalation Aerosol 8.5 gm Mdi] 2 puff IH Q6HP PRN 08/20/17 Fluticasone/Salmeterol [Advair 500-50 Diskus 28 Dose] 1 inh IH Q12 08/20/17 Tamsulosin HCl [Flomax 0.4 mg Cap.sr] 0.4 mg PO DAILY 08/20/17 Tiotropium Collins [Spiriva] 2 cap IH DAILY 08/20/17 Allergies/Adverse Reactions: No Known Allergies Allergy (Verified 01/10/14 09:13) Review of Systems Constitutional: ABSENT: chills, fever(s), headache(s), weight gain, weight loss Eyes: ABSENT: visual disturbances Ears: ABSENT: hearing changes Cardiovascular: ABSENT: chest pain, dyspnea on exertion, edema, orthropnea, palpitations Respiratory: ABSENT: cough, hemoptysis Gastrointestinal: ABSENT: abdominal pain, constipation, diarrhea, hematemesis, hematochezia, nausea, vomiting Genitourinary: ABSENT: dysuria, hematuria Musculoskeletal: ABSENT: joint swelling Integumentary: ABSENT: rash, wounds Neurological: ABSENT: abnormal gait, abnormal speech, confusion, dizziness, focal weakness, syncope Psychiatric: ABSENT: anxiety, depression, homidical ideation, suicidal ideation Endocrine: ABSENT: cold intolerance, heat intolerance, polydipsia, polyuria Hematologic/Lymphatic: ABSENT: easy bleeding, easy bruising Physical Exam Vital Signs: Temp Pulse Resp BP Pulse Ox 98.9 F 66 22 H 157/73 H 90 L 08/21/17 08:00 08/21/17 08:18 08/21/17 10:00 08/21/17 09:10 08/21/17 09:10 Intake & Output 08/20/17 08/21/17 08/22/17 06:59 06:59 06:59 Intake Total 2958 220 Output Total 950 200 Balance 2007 Weight 79.1 kg General appearance: PRESENT: no acute distress, well-developed, well-nourished Head exam: PRESENT: atraumatic, normocephalic Eye exam: PRESENT: conjunctiva pink, EOMI, PERRLA. ABSENT: scleral icterus Ear exam: PRESENT: normal external ear exam Mouth exam: PRESENT: moist, tongue midline Neck exam: ABSENT: carotid bruit, JVD, lymphadenopathy, thyromegaly Respiratory exam: PRESENT: clear to auscultation chetan. ABSENT: rales, rhonchi, wheezes Cardiovascular exam: PRESENT: RRR. ABSENT: diastolic murmur, rubs, systolic murmur Pulses: PRESENT: normal dorsalis pedis pul Vascular exam: PRESENT: normal capillary refill GI/Abdominal exam: PRESENT: normal bowel sounds, soft. ABSENT: distended, guarding, mass, organolmegaly, rebound, tenderness Rectal exam: PRESENT: deferred Extremities exam: PRESENT: full ROM. ABSENT: calf tenderness, clubbing, pedal edema Neurological exam: PRESENT: alert, awake, oriented to person, oriented to place , oriented to time, oriented to situation, CN II-XII grossly intact. ABSENT: motor sensory deficit Psychiatric exam: PRESENT: appropriate affect, normal mood. ABSENT: homicidal ideation, suicidal ideation Skin exam: PRESENT: dry, intact, warm. ABSENT: cyanosis, rash Results Laboratory Results: 08/21/17 05:12 08/21/17 05:12 08/20/17 08/21/17 08/21/17 17:15 05:12 05:12 WBC 12.1 H RBC 4.40 Hgb 9.3 L Hct 30.3 L MCV 69 L MCH 21.2 L MCHC 30.7 L RDW 21.8 H Plt Count 292 Seg Neutrophils % Not Reportable Lymphocytes % Not Reportable Monocytes % Not Reportable Eosinophils % Not Reportable Basophils % Not Reportable Absolute Neutrophils Not Reportable Absolute Lymphocytes Not Reportable Absolute Monocytes Not Reportable Absolute Eosinophils Not Reportable Absolute Basophils Not Reportable Sodium 144.1 Potassium 4.2 Chloride 107 Carbon Dioxide 26 Anion Gap 11 BUN 12 Creatinine 0.82 Est GFR ( Amer) > 60 Est GFR (Non-Af Amer) > 60 Glucose 103 Calcium 8.9 Iron < 10.1 L TIBC 461 H % Saturation UNABLE TO CALCULATE Ferritin 4.62 L Total Bilirubin 1.3 AST 34 ALT 32 Alkaline Phosphatase 54 Total Protein 6.6 Albumin 3.9 Vitamin B12 856.0 Folate 7.17 08/20/17 08/20/17 08/20/17 17:15 17:15 23:15 Creatine Kinase 480 H 559 H CK-MB (CK-2) 14.60 H Troponin I < 0.012 08/20/17 08/21/17 08/21/17 23:15 05:12 05:12 Creatine Kinase 572 H CK-MB (CK-2) 13.90 H 11.00 H Troponin I < 0.012 < 0.012 Impressions: Chest X-Ray 08/20/17 12:17 IMPRESSION: NO SIGNIFICANT RADIOGRAPHIC FINDING IN THE CHEST. Head CT 08/20/17 12:17 IMPRESSION: 1. Chronic appearing intracranial changes. No acute abnormality. EVIDENCE OF ACUTE STROKE: NO. Pertinent positive or negative findings of the imaging study reported as a CRITICAL EXAM to ER PROVIDER at11:49 on 08/20/2017. Category of Critical Exam: Stroke alert. Chest/Abdomen CTA 08/20/17 13:08 IMPRESSION: 1. Limiting motion. 2. COPD. 3. No gross pulmonary embolus. Head MRI 08/20/17 13:56 IMPRESSION: Right occipital encephalomalacia consistent with sequela of remote ischemic injury. Background of chronic microvascular and age-related involutional change. EVIDENCE OF ACUTE STROKE: NO. Abdomen Ultrasound 08/20/17 14:44 IMPRESSION: Limited grossly negative study without acute or suspicious abdominal abnormality visualized at ultrasound. 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 He will need close monitoring by hematology, I generally put patients who have chronic AVMs with CBCs on a monthly basis and close monitoring of his iron studies. I will leave it up to his primary physician on whether to reconsult Dr. Orellana for another endoscopy, they may or may not find the source of bleeding as most of the time AVMs may stop bleeding before the scope actually happens. - Time Time Spent: Greater than 70 Minutes Critical Time spent with patient: 35 or more minutes - Inpatient Certification Based on my medical assessment, after consideration of the patient's comorbidities, presenting symptoms, or acuity I expect that the services needed warrant INPATIENT care.: Yes I certify that my determination is in accordance with my understanding of Medicare's requirements for reasonable and necessary INPATIENT services [42 CFR 412.3e].: Yes Medical Necessity: Need For Continuous Telemetry Monitoring, Other - IV iron
[2017-08-21] MEDS: METHYLPREDNISOLONE INJ 40 MG/1 ML SDV IV SCH ×2 (14:15→21:09)
[2017-08-21] MEDS ORDERED: FERUMOXYTOL (NON-ESRD) 510 MG/NS 100 ML IV ONE ×2 (15:00)
--- NOTE | 2017-08-21 16:21 | PDOC CONSULTATION ---
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 Past Medical History Cardiac Medical History: Reports: Hypertension - CONTROLLED Denies: Congestive Heart Failure, Coronary Artery Disease, Myocardial Infarction Pulmonary Medical History: Reports: Bronchitis, Chronic Obstructive Pulmonary Disease (COPD), Other - Asbestosis Denies: Asthma, Pneumonia EENT Medical History: Reports: Cataracts Neurological Medical History: Denies: Migraine, Multiple Sclerosis, Seizures Endocrine Medical History: Denies: Diabetes Mellitus Type 1, Diabetes Mellitus Type 2, Gestational Diabetes Renal/ Medical History: Reports: Other - BPH Denies: End Stage Renal Disease, Nephrolithiasis Malignancy Medical History: Reports: None GI Medical History: Denies: Cirrhosis, Crohn's Disease, Hepatitis, Hiatal Hernia, Ulcerative Colitis Musculoskeltal Medical History: Reports: Arthritis Denies: Fibromyalgia Skin Medical History: Denies: Eczema, Psoriasis Psychiatric Medical History: Denies: Alcohol Dependency, Bipolar Disorder, Depression, General Anxiety Disorder, Personality Disorder, Post Traumatic Stress Disorder, Schizoaffective Disorder, Substance Abuse Traumatic Medical History: Denies: Gunshot Wound, Stab Wound Hematology: Reports: Anemia - TAKES IRON Denies: Sickle Cell Disease Infectious Medical History: Denies: Hepatitis B, Hepatitis C Past Surgical History Past Surgical History: Reports: Other - bilateral cataracts removed Denies: Pacemaker Social History Information Source: Patient, [facility] Records 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 Cigarettes Packs Per Day: 1 Number of Years Smokin Last Time Smoked: 2003. Passive smoke exposure as: Both Frequency of Alcohol Use: None Hx Recreational Drug Use: No Drugs: None Hx Prescription Drug Abuse: No Do you have pets?: Yes Have you had any respiratory illnesses as a child?: No Have you been exposed to any sick contacts recently?: No Have you had any recent respiratory illnesses?: No Have you travelled outside of [place] in the past 12 months?: Yes Where?: [facility] [place] - Advance Directive Resuscitation Status: Full Code Family History Family History: CAD, DM, Hypertension Parental Family History Reviewed: Yes Children Family History Reviewed: Yes Sibling(s) Family History Reviewed.: Yes Medication/Allergy Home Medications: Albuterol Sulfate [Proair Hfa Inhalation Aerosol 8.5 gm Mdi] 2 puff IH Q6HP PRN 08/20/17 Fluticasone/Salmeterol [Advair 500-50 Diskus 28 Dose] 1 inh IH Q12 08/20/17 Tamsulosin HCl [Flomax 0.4 mg Cap.sr] 0.4 mg PO DAILY 08/20/17 Tiotropium [place] [Spiriva] 2 cap IH DAILY 08/20/17 Allergies/Adverse Reactions: No Known Allergies Allergy (Verified 01/10/14 09:13) Review of Systems Constitutional: ABSENT: anorexia, chills, fever(s), headache(s), night sweats Eyes: ABSENT: visual disturbances Ears: ABSENT: hearing changes Nose, Mouth, and Throat: ABSENT: mouth pain, sore throat Cardiovascular: PRESENT: chest pain, dyspnea on exertion, edema, orthropnea Respiratory: PRESENT: dyspnea. ABSENT: hemoptysis Gastrointestinal: PRESENT: constipation, heartburn. ABSENT: abdominal pain, bloating, coffee ground emesis, diarrhea, dysphagia, hematemesis, hematochezia, melena, nausea, vomiting Genitourinary: PRESENT: difficulty urinating, nocturia. ABSENT: dysuria, hematuria Musculoskeletal: ABSENT: deformity Integumentary: ABSENT: pruritus, rash Neurological: PRESENT: syncope. ABSENT: abnormal speech, confusion, convulsions , focal weakness, lack of coordination Psychiatric: ABSENT: anxiety, depression, hallucinations, homidical ideation, suicidal ideation Endocrine: ABSENT: cold intolerance, heat intolerance, menstrual abnormalities, polydipsia, polyuria Hematologic/Lymphatic: ABSENT: easy bleeding, easy bruising, lymphadenopathy Physical Exam Vital Signs: Temp Pulse Resp BP Pulse Ox 98.9 F 66 22 H 157/73 H 90 L 08/21/17 08:00 08/21/17 08:18 08/21/17 10:00 08/21/17 09:10 08/21/17 09:10 Intake & Output 08/20/17 08/21/17 08/22/17 06:59 06:59 06:59 Intake Total 2958 220 Output Total 950 200 Balance 2007 Weight 79.1 kg General appearance: PRESENT: cooperative, disheveled, obese, well-developed, well-nourished. ABSENT: no acute distress, mild distress, morbidly obese, severe distress, thin Head exam: PRESENT: atraumatic, normocephalic Eye exam: PRESENT: conjunctiva pale, EOMI. ABSENT: conjunctival injection, conjunctiva pink, nystagmus, periorbital swelling, scleral icterus Mouth exam: PRESENT: neck supple. ABSENT: laceration, moist Teeth exam: PRESENT: edentulous Neck exam: ABSENT: carotid bruit, JVD, lymphadenopathy, thyromegaly, tracheal deviation, tracheostomy Respiratory exam: PRESENT: decreased breath sounds, prolonged expiratory phas, rales, rhonchi, symmetrical, unlabored, wheezes. ABSENT: accessory muscle use, chest wall tenderness, clear to auscultation chetan, crackles, retraction, stridor , tachypnea Cardiovascular exam: PRESENT: RRR, +S1. ABSENT: irregular rhythm, rubs Pulses: PRESENT: normal radial pulses GI/Abdominal exam: PRESENT: normal bowel sounds, soft. ABSENT: distended, guarding, mass, organolmegaly, rebound, tenderness Rectal exam: PRESENT: deferred Gentrourinary exam: PRESENT: indwelling catheter Extremities exam: ABSENT: calf tenderness, clubbing, joint swelling, tenderness Musculoskeletal exam: ABSENT: ambulatory, deformity, dislocation, tenderness Neurological exam: PRESENT: alert, awake Psychiatric exam: PRESENT: normal mood Skin exam: PRESENT: dry, warm Results Laboratory Results: 08/21/17 05:12 08/21/17 05:12 08/20/17 08/21/1717 17:15 05:12 05:12 WBC 12.1 H RBC 4.40 Hgb 9.3 L Hct 30.3 L MCV 69 L MCH 21.2 L MCHC 30.7 L RDW 21.8 H Plt Count 292 Seg Neutrophils % Not Reportable Lymphocytes % Not Reportable Monocytes % Not Reportable Eosinophils % Not Reportable Basophils % Not Reportable Absolute Neutrophils Not Reportable Absolute Lymphocytes Not Reportable Absolute Monocytes Not Reportable Absolute Eosinophils Not Reportable Absolute Basophils Not Reportable Sodium 144.1 Potassium 4.2 Chloride 107 Carbon Dioxide 26 Anion Gap 11 BUN 12 Creatinine 0.82 Est GFR ( Amer) > 60 Est GFR (Non-Af Amer) > 60 Glucose 103 Calcium 8.9 Iron < 10.1 L TIBC 461 H % Saturation UNABLE TO CALCULATE Ferritin 4.62 L Total Bilirubin 1.3 AST 34 ALT 32 Alkaline Phosphatase 54 Total Protein 6.6 Albumin 3.9 Vitamin B12 856.0 Folate 7.17 08/20/17 08/20/17 08/20/17 17:15 17:15 23:15 Creatine Kinase 480 H 559 H CK-MB (CK-2) 14.60 H Troponin I < 0.012 08/20/17 08/21/17 08/21/17 23:15 05:12 05:12 Creatine Kinase 572 H CK-MB (CK-2) 13.90 H 11.00 H Troponin I < 0.012 < 0.012 Impressions: Chest X-Ray 08/20/17 12:17 IMPRESSION: NO SIGNIFICANT RADIOGRAPHIC FINDING IN THE CHEST. Head CT 08/20/17 12:17 IMPRESSION: 1. Chronic appearing intracranial changes. No acute abnormality. EVIDENCE OF ACUTE STROKE: NO. Pertinent positive or negative findings of the imaging study reported as a CRITICAL EXAM to ER PROVIDER at11:49 on 08/20/2017. Category of Critical Exam: Stroke alert. Chest/Abdomen CTA 08/20/17 13:08 IMPRESSION: 1. Limiting motion. 2. COPD. 3. No gross pulmonary embolus. Head MRI 08/20/17 13:56 IMPRESSION: Right occipital encephalomalacia consistent with sequela of remote ischemic injury. Background of chronic microvascular and age-related involutional change. EVIDENCE OF ACUTE STROKE: NO. Abdomen Ultrasound 08/20/17 14:44 IMPRESSION: Limited grossly negative study without acute or suspicious abdominal abnormality visualized at ultrasound. Assessment & Plan - Diagnosis (1) Anemia Qualifiers: Anemia type: iron deficiency Iron deficiency anemia type: chronic blood loss Qualified Code(s): D50.0 - Iron deficiency anemia secondary to blood loss (chronic) Is this a current diagnosis for this admission?: Yes Plan: long standing as aptient has had a w/u in past hemmocult all stools retic count S Fe (2) COPD (chronic obstructive pulmonary disease) Qualifiers: Emphysema type: panlobular Is this a current diagnosis for this admission?: Yes Plan: Generic Name Dose Route Start Last Admin Trade Name Freq PRN Reason Stop Dose Admin Methylprednisolone Sodium Succinate 40 mg 08/21/17 14:00 08/21/17 14:15 Solu-Medrol Inj/Pf 40 Mg/1 Ml Sdv IV 09/20/17 13:59 40 mg Q8 LEE Tiotropium [place] 1 cap 08/21/17 10:00 08/21/17 10:42 Spiriva Handihaler 5 Cap/Kit (18 Mcg/Cap) IH 09/20/17 09:59 1 cap DAILY LEE Fluticasone/Salmeterol 1 inh 08/20/17 22:00 08/21/17 10:42 Advair 500-50 Diskus 14 Dose/Diskus IH 09/19/17 21:59 1 inh Q12 LEE continue above regemin with supplemental O2 CT scan diffuse air trapping throughout the lungs ;no subpleural sparing islolated areas of subpleural honeycombing at the bases; ABG would be helpful does patient retain PCO2 rapid desaturation with minimal exertion ???V/Q may be useful (3) Syncope Qualifiers: Syncope type: unspecified Qualified Code(s): R55 - Syncope and collapse Is this a current diagnosis for this admission?: Yes Plan: difficult to asses as conflicting reports about C-P arrest
[2017-08-21] MEDS ORDERED: AMLODIPINE BESYLATE 5 MG TABLET PO ONE (17:00)
[2017-08-21 18:03] LABS: ARTERIAL BLOOD BASE EXCESS -2.4 mmol/L; ARTERIAL BLOOD O2 SATURATION 94.2 % (94-98)
--- NOTE | 2017-08-21 19:34 | PDOC PROGRESS REPORT ---
Subjective Progress Note for:: 08/21/17 Subjective:: Patient seems to be doing better with significant improvement. Pt is denying any chest arm or neck discomfort. Patient denying any PND, orthopnea. Patient denied any sustained palpitations, dizziness, syncope, near syncope. Patient denying any fever chills. Patient denying any other significant discomfort. Patient is maintaining sinus rhythm. Patient being moved out of unit. Patient did receive 1 unit of blood transfusion without any problems. He feels much improved. Review of systems: Rest review of systems negative. Medications: Medications have been reviewed. Physical Exam Vital Signs: Temp Pulse Resp BP Pulse Ox 98.7 F 80 18 190/87 H 96 08/21/17 14:00 08/21/17 19:00 08/21/17 17:43 08/21/17 15:51 08/21/17 17:54 Intake & Output 08/20/17 08/21/17 08/22/17 06:59 06:59 06:59 Intake Total 2958 945 Output Total 950 425 Balance 2008 520 Weight 79.1 kg 76.2 kg Exam: GENERAL: well-nourished and in no acute distress. Alert and oriented x3 HEAD: Atraumatic, normocephalic. EYES: Pupils equal round and reactive to light, extraocular movements intact, sclera anicteric, conjunctiva are normal. ENT: TMs normal, nares patent, oropharynx clear without exudates. Moist mucous membranes. No oral ulcerations or bleeding gums noted NECK: supple without lymphadenopathy. Trachea is central. No cervical or axillary lymphadenopathy noted. Carotids are 2+, JVD WNL LUNGS: Respiration seems nonlabored, no significant accessory muscle action noted. Breath sounds clear to auscultation bilaterally and equal noted. No wheezes rales or rhonchi noted. No significant dullness noted on percussion. CHEST: Palpation of the chest wall shows no significant chest wall tenderness. No other significant abnormalities noted. HEART: [place] [employer] P[employer] BRICK, No PSH, 1/6 DAVE aortic area, 1/6 crocker systolic murmur mitral area, no rubs, no gallops. ABDOMEN: Soft, no significant tenderness appreciated, normoactive bowel sounds. No guarding, no rebound. No rigidity noted . No masses appreciated. EXTREMITIES: Pedal pulses are 1-2+, no calf tenderness noted. No clubbing or cyanosis.trace to 1+ pedal edema noted NEUROLOGICAL: Focused neurological exam showed no significant neurologic deficit. Normal speech, no focal weakness appreciated. PSYCH: Normal mood, normal affect. Judgment and insight within normal limits. SKIN: No significant ecchymosis, rash, ulcerations or signs of pruritus noted. MUSCULOSKELETAL EXAM: No significant joint swelling noted. Results Laboratory Results: 08/21/17 05:12 08/21/17 05:12 08/20/17 08/21/17 08/21/17 17:15 05:12 05:12 WBC 12.1 H RBC 4.40 Hgb 9.3 L Hct 30.3 L MCV 69 L MCH 21.2 L MCHC 30.7 L RDW 21.8 H Plt Count 292 Seg Neutrophils % Not Reportable Lymphocytes % Not Reportable Monocytes % Not Reportable Eosinophils % Not Reportable Basophils % Not Reportable Absolute Neutrophils Not Reportable Absolute Lymphocytes Not Reportable Absolute Monocytes Not Reportable Absolute Eosinophils Not Reportable Absolute Basophils Not Reportable Carbonic Acid HCO3/H2CO3 Ratio ABG pH ABG pCO2 ABG pO2 ABG HCO3 ABG O2 Saturation ABG Base Excess FiO2 Sodium 144.1 Potassium 4.2 Chloride 107 Carbon Dioxide 26 Anion Gap 11 BUN 12 Creatinine 0.82 Est GFR ( Amer) > 60 Est GFR (Non-Af Amer) > 60 Glucose 103 Calcium 8.9 Iron < 10.1 L TIBC 461 H % Saturation UNABLE TO CALCULATE Ferritin 4.62 L Total Bilirubin 1.3 AST 34 ALT 32 Alkaline Phosphatase 54 Total Protein 6.6 Albumin 3.9 Vitamin B12 856.0 Folate 7.17 08/21/17 17:40 WBC RBC Hgb Hct MCV MCH MCHC RDW Plt Count Seg Neutrophils % Lymphocytes % Monocytes % Eosinophils % Basophils % Absolute Neutrophils Absolute Lymphocytes Absolute Monocytes Absolute Eosinophils Absolute Basophils Carbonic Acid 1.31 HCO3/H2CO3 Ratio 17:1 ABG pH 7.35 ABG pCO2 43.4 ABG pO2 74.4 L ABG HCO3 23.2 ABG O2 Saturation 94.2 ABG Base Excess -2.4 FiO2 3L Sodium Potassium Chloride Carbon Dioxide Anion Gap BUN Creatinine Est GFR ( Amer) Est GFR (Non-Af Amer) Glucose Calcium Iron TIBC % Saturation Ferritin Total Bilirubin AST ALT Alkaline Phosphatase Total Protein Albumin Vitamin B12 Folate 08/20/17 08/20/17 08/20/17 17:15 17:15 23:15 Creatine Kinase 480 H 559 H CK-MB (CK-2) 14.60 H Troponin I < 0.012 08/20/17 08/21/17 08/21/17 23:15 05:12 05:12 Creatine Kinase 572 H CK-MB (CK-2) 13.90 H 11.00 H Troponin I < 0.012 < 0.012 Impressions: Chest X-Ray 08/20/17 12:17 IMPRESSION: NO SIGNIFICANT RADIOGRAPHIC FINDING IN THE CHEST. Head CT 08/20/17 12:17 IMPRESSION: 1. Chronic appearing intracranial changes. No acute abnormality. EVIDENCE OF ACUTE STROKE: NO. Pertinent positive or negative findings of the imaging study reported as a CRITICAL EXAM to ER PROVIDER at11:49 on 08/20/2017. Category of Critical Exam: Stroke alert. Chest/Abdomen CTA 08/20/17 13:08 IMPRESSION: 1. Limiting motion. 2. COPD. 3. No gross pulmonary embolus. Head MRI 08/20/17 13:56 IMPRESSION: Right occipital encephalomalacia consistent with sequela of remote ischemic injury. Background of chronic microvascular and age-related involutional change. EVIDENCE OF ACUTE STROKE: NO. Abdomen Ultrasound 08/20/17 14:44 IMPRESSION: Limited grossly negative study without acute or suspicious abdominal abnormality visualized at ultrasound. Assessment & Plan - Diagnosis (1) History of successful cardiopulmonary resuscitation Is this a current diagnosis for this admission?: Yes (2) Syncope Qualifiers: Syncope type: unspecified Qualified Code(s): R55 - Syncope and collapse Is this a current diagnosis for this admission?: Yes (3) COPD exacerbation Is this a current diagnosis for this admission?: Yes (4) Anemia Qualifiers: Anemia type: iron deficiency Iron deficiency anemia type: chronic blood loss Qualified Code(s): D50.0 - Iron deficiency anemia secondary to blood loss (chronic) Is this a current diagnosis for this admission?: Yes - Notes Notes: Status post CPR for presumed syncope by bystanders who claimed to be an EMT. Patient recovered consciousness within a minute. Patient was noted to be short of breath prior to passing out, there was no other prodrome noted. Most likely related to severe COPD and anemia in combination. Doubt cardiac dysrhythmia. Recommend patient be evaluated by an event monitor as an outpatient on discharge for at least 7-30 days. Syncope: So far no etiology noted. Most likely related to anemia plus severe COPD. Patient has been noted to severely by minimal movement. COPD exacerbation. Agree with treatment so far. Patient has improved. Anemia: Improved. Patient has received blood transfusion. Oncologist has seen the patient. Plan to give him iron infusion. Cardiac chan patient has been stable. 2D echo report is reviewed with the patient and primary class teacher. At this time will sign off. Please make appointment for a sleep study for this patient as patient was noted to have severe snoring and also may have underlying sleep apnea syndrome. Patient may have narcolepsy with or without cataplexy. This is in the differential diagnosis of syncope. - Time Time with patient: Greater than 35 minutes - CODE STATUS was discussed, patient remains full code. Surrogate decision-maker unchanged. Multiple medical problems were addressed. More than 50% of the time spent coordinating care, discussing management plans with involved caregivers. Management plans discussed with involved personnels. Medical decision making was of moderate to high complexity, patient's has multiple comorbidities.. Echo findings discussed. Management plans discussed. Will sign off. Please reconsult if needed. Medications reviewed and adjusted accordingly: Yes
[2017-08-21] MEDS: IPRATROPIUM/ALBUTEROL 0.5-2.5 MG/3 ML AMPUL NEB SCH (23:47)
[2017-08-22] MEDS: IPRATROPIUM/ALBUTEROL 0.5-2.5 MG/3 ML AMPUL NEB SCH ×3 (04:20→12:10)
[2017-08-22 05:30] LABS: HEMATOCRIT 29.9 % (37.9-51.0); HEMOGLOBIN 9.2 g/dL (13.5-17.0); HGB HCT DIFFERENCE -2.3; MEAN CORPUSCULAR HEMOGLOBIN 21.6 pg (27.0-33.4); MEAN CORPUSCULAR HGB CONC 30.9 g/dL (32.0-36.0); MEAN CORPUSCULAR VOLUME 70 fl (80-97); RED BLOOD COUNT 4.27 10^6/uL (4.35-5.55); RED CELL DISTRIBUTION WIDTH 21.6 % (11.5-14.0); WHITE BLOOD COUNT 10.1 10^3/uL (4.0-10.5)
[2017-08-22] MEDS: METHYLPREDNISOLONE INJ 40 MG/1 ML SDV IV SCH ×3 (05:31→21:28)
[2017-08-22] MEDS: AMLODIPINE BESYLATE 5 MG TABLET PO SCH ×2 (05:32→17:58)
[2017-08-22] MEDS: HEPARIN SOD (PORCINE) 5,000 UNIT/ML 1 ML SYRINGE SUBCUT SCH ×3 (05:32→21:28)
[2017-08-22 05:49] LABS: ALANINE AMINOTRANSFERASE 30 U/L (21-72); ALBUMIN 4.3 g/dL (3.5-5.0); ALKALINE PHOSPHATASE 51 U/L (38-126); ANION GAP 14 (5-19); ASPARTATE AMINO TRANSFERASE 29 U/L (17-59); BILIRUBIN,DIRECT 0.5 mg/dL (0.0-0.4); BILIRUBIN,TOTAL 0.9 mg/dL (0.2-1.3); BLOOD UREA NITROGEN 12 mg/dL (7-20); CALCIUM 9.7 mg/dL (8.4-10.2); CARBON DIOXIDE 25 mmol/L (22-30); CHLORIDE 103 mmol/L (98-107); CREATININE RESULT 0.65 mg/dL (0.52-1.25); GLUCOSE 148 mg/dL (75-110); POTASSIUM 4.4 mmol/L (3.6-5.0); TOTAL PROTEIN 7.2 g/dL (6.3-8.2)
[2017-08-22 06:05] LABS: BASOPHILS % (MANUAL) 0 % (0-2); EOSINOPHILS % (MANUAL) 0 % (0-6); LYMPHOCYTES % (MANUAL) 7 % (13-45); NUCLEATED RED BLOOD CELLS 1 /100 WBC (0); TOTAL CELLS COUNTED 100
[2017-08-22 06:07] LABS: ANISOCYTOSIS 3+; BURR CELLS SLIGHT; HYPOCHROMASIA 2+; MICROCYTOSIS 2+; POIKILOCYTOSIS 1+; POLYCHROMASIA SLIGHT; TOXIC VACUOLATION PRESENT
[2017-08-22 06:08] LABS: OVALOCYTES 1+; PLATELET CLUMPS PRESENT; TARGET CELLS 1+
--- NOTE | 2017-08-22 07:57 | PDOC PROGRESS REPORT ---
Subjective Progress Note for:: 08/22/17 Subjective:: Hb stable, no BM since admitted, pt having SOB/PEREZ, per nursing breathing was labored yesterday when he came to floor. Is requiring still 4L 02 when usual home o2 is 2L continuous. Physical Exam Vital Signs: Temp Pulse Resp BP Pulse Ox 98.0 F 69 18 178/91 H 95 08/22/17 04:06 08/22/17 07:00 08/22/17 04:20 08/22/17 04:06 08/22/17 04:06 Intake & Output 08/21/17 08/22/17 08/23/17 06:59 06:59 06:59 Intake Total 2958 1345 Output Total 950 1325 Balance 2007 Weight 79.1 kg 76.2 kg General appearance: PRESENT: no acute distress, well-developed, well-nourished Head exam: PRESENT: atraumatic, normocephalic Eye exam: PRESENT: conjunctiva pink, EOMI, PERRLA. ABSENT: scleral icterus Ear exam: PRESENT: normal external ear exam Mouth exam: PRESENT: moist, tongue midline Neck exam: ABSENT: carotid bruit, JVD, lymphadenopathy, thyromegaly Respiratory exam: PRESENT: clear to auscultation chetan. ABSENT: rales, rhonchi, wheezes Cardiovascular exam: PRESENT: RRR. ABSENT: diastolic murmur, rubs, systolic murmur Pulses: PRESENT: normal dorsalis pedis pul Vascular exam: PRESENT: normal capillary refill GI/Abdominal exam: PRESENT: normal bowel sounds, soft. ABSENT: distended, guarding, mass, organolmegaly, rebound, tenderness Rectal exam: PRESENT: deferred Extremities exam: PRESENT: full ROM. ABSENT: calf tenderness, clubbing, pedal edema Neurological exam: PRESENT: alert, awake, oriented to person, oriented to place , oriented to time, oriented to situation, CN II-XII grossly intact. ABSENT: motor sensory deficit Psychiatric exam: PRESENT: appropriate affect, normal mood. ABSENT: homicidal ideation, suicidal ideation Skin exam: PRESENT: dry, intact, warm. ABSENT: cyanosis, rash Results Laboratory Results: 08/22/17 04:11 08/22/17 04:11 08/21/17 08/22/17 08/22/17 17:40 04:11 04:11 WBC 10.1 RBC 4.27 L Hgb 9.2 L Hct 29.9 L MCV 70 L MCH 21.6 L MCHC 30.9 L RDW 21.6 H Plt Count 260 Seg Neutrophils % Not Reportable Lymphocytes % Not Reportable Monocytes % Not Reportable Eosinophils % Not Reportable Basophils % Not Reportable Absolute Neutrophils Not Reportable Absolute Lymphocytes Not Reportable Absolute Monocytes Not Reportable Absolute Eosinophils Not Reportable Absolute Basophils Not Reportable Carbonic Acid 1.31 HCO3/H2CO3 Ratio 17:1 ABG pH 7.35 ABG pCO2 43.4 ABG pO2 74.4 L ABG HCO3 23.2 ABG O2 Saturation 94.2 ABG Base Excess -2.4 FiO2 3L Sodium 142.0 Potassium 4.4 Chloride 103 Carbon Dioxide 25 Anion Gap 14 BUN 12 Creatinine 0.65 Est GFR ( Amer) > 60 Est GFR (Non-Af Amer) > 60 Glucose 148 H Calcium 9.7 Total Bilirubin 0.9 AST 29 ALT 30 Alkaline Phosphatase 51 Total Protein 7.2 Albumin 4.3 08/20/17 08/20/17 08/20/17 17:15 17:15 23:15 Creatine Kinase 480 H 559 H CK-MB (CK-2) 14.60 H Troponin I < 0.012 08/20/17 08/21/17 08/21/17 23:15 05:12 05:12 Creatine Kinase 572 H CK-MB (CK-2) 13.90 H 11.00 H Troponin I < 0.012 < 0.012 Impressions: Chest X-Ray 08/20/17 12:17 IMPRESSION: NO SIGNIFICANT RADIOGRAPHIC FINDING IN THE CHEST. Head CT 08/20/17 12:17 IMPRESSION: 1. Chronic appearing intracranial changes. No acute abnormality. EVIDENCE OF ACUTE STROKE: NO. Pertinent positive or negative findings of the imaging study reported as a CRITICAL EXAM to ER PROVIDER at11:49 on 08/20/2017. Category of Critical Exam: Stroke alert. Chest/Abdomen CTA 08/20/17 13:08 IMPRESSION: 1. Limiting motion. 2. COPD. 3. No gross pulmonary embolus. Head MRI 08/20/17 13:56 IMPRESSION: Right occipital encephalomalacia consistent with sequela of remote ischemic injury. Background of chronic microvascular and age-related involutional change. EVIDENCE OF ACUTE STROKE: NO. Abdomen Ultrasound 08/20/17 14:44 IMPRESSION: Limited grossly negative study without acute or suspicious abdominal abnormality visualized at ultrasound. 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 Will get another dose IV iron tomorrow if pt still inpatient. - Time Time Spent with patient: 15-24 minutes Critical Time spent with patient: 15-24 minutes - Inpatient Certification Based on my medical assessment, after consideration of the patient's comorbidities, presenting symptoms, or acuity I expect that the services needed warrant INPATIENT care.: Yes I certify that my determination is in accordance with my understanding of Medicare's requirements for reasonable and necessary INPATIENT services [42 CFR 412.3e].: Yes Medical Necessity: Failure to Improve With Outpatient Therapy, Need For Continuous Telemetry Monitoring, Need for Nebulizer Therapy and Monitoring of Response, Risk of Complication if Not Cared For in Hospital
[2017-08-22] MEDS: PANTOPRAZOLE SODIUM 40 MG VIAL IV SCH ×2 (09:18→21:28)
[2017-08-22] MEDS: DOCUSATE SODIUM 100 MG CAPSULE PO SCH (09:18)
[2017-08-22] MEDS: TIOTROPIUM BROMIDE DPI 5 CAP/KIT (18 MCG/CAP) IH SCH (09:19)
[2017-08-22] MEDS: FLUTICASONE/SALMETEROL DISKUS 500-50 MCG/DOSE IH SCH ×2 (09:19→21:27)
--- NOTE | 2017-08-22 12:58 | PDOC PROGRESS REPORT ---
Subjective Progress Note for:: 08/22/17 Subjective:: No syncopal or near syncopal episodes Physical Exam Vital Signs: Temp Pulse Resp BP Pulse Ox 97.9 F 85 20 152/72 H 94 08/22/17 11:45 08/22/17 11:45 08/22/17 11:45 08/22/17 11:45 08/22/17 11:45 Intake & Output 08/21/17 08/22/17 08/23/17 06:59 06:59 06:59 Intake Total 2958 1345 Output Total 950 1325 Balance 2007 Weight 79.1 kg 76.2 kg General appearance: PRESENT: no acute distress, cooperative, disheveled, well- developed, well-nourished. ABSENT: mild distress, morbidly obese, obese, severe distress, thin Head exam: PRESENT: normocephalic Eye exam: PRESENT: conjunctiva pale, EOMI. ABSENT: conjunctival injection, conjunctiva pink, nystagmus, periorbital swelling, scleral icterus Mouth exam: PRESENT: dry mucosa, neck supple, tongue midline Neck exam: ABSENT: carotid bruit, JVD, lymphadenopathy, thyromegaly Respiratory exam: PRESENT: decreased breath sounds, prolonged expiratory phas, rhonchi, symmetrical, unlabored, wheezes. ABSENT: accessory muscle use, chest wall tenderness, clear to auscultation chetan, crackles, rales, retraction, stridor , tachypnea Cardiovascular exam: PRESENT: RRR, +S1, +S2. ABSENT: clicks, gallop, irregular rhythm, rubs Pulses: PRESENT: normal radial pulses GI/Abdominal exam: PRESENT: normal bowel sounds, soft. ABSENT: distended, guarding, mass, organolmegaly, rebound, tenderness Extremities exam: ABSENT: calf tenderness, clubbing, joint swelling Musculoskeletal exam: PRESENT: ambulatory. ABSENT: deformity, dislocation Neurological exam: PRESENT: alert, awake Psychiatric exam: PRESENT: normal mood Skin exam: PRESENT: dry, warm Results Laboratory Results: 08/22/17 04:11 08/22/17 04:11 08/21/17 08/22/17 08/22/17 17:40 04:11 04:11 WBC 10.1 RBC 4.27 L Hgb 9.2 L Hct 29.9 L MCV 70 L MCH 21.6 L MCHC 30.9 L RDW 21.6 H Plt Count 260 Seg Neutrophils % Not Reportable Lymphocytes % Not Reportable Monocytes % Not Reportable Eosinophils % Not Reportable Basophils % Not Reportable Absolute Neutrophils Not Reportable Absolute Lymphocytes Not Reportable Absolute Monocytes Not Reportable Absolute Eosinophils Not Reportable Absolute Basophils Not Reportable Carbonic Acid 1.31 HCO3/H2CO3 Ratio 17:1 ABG pH 7.35 ABG pCO2 43.4 ABG pO2 74.4 L ABG HCO3 23.2 ABG O2 Saturation 94.2 ABG Base Excess -2.4 FiO2 3L Sodium 142.0 Potassium 4.4 Chloride 103 Carbon Dioxide 25 Anion Gap 14 BUN 12 Creatinine 0.65 Est GFR ( Amer) > 60 Est GFR (Non-Af Amer) > 60 Glucose 148 H Calcium 9.7 Total Bilirubin 0.9 AST 29 ALT 30 Alkaline Phosphatase 51 Total Protein 7.2 Albumin 4.3 08/20/17 08/20/17 08/20/17 17:15 17:15 23:15 Creatine Kinase 480 H 559 H CK-MB (CK-2) 14.60 H Troponin I < 0.012 08/20/17 08/21/17 08/21/17 23:15 05:12 05:12 Creatine Kinase 572 H CK-MB (CK-2) 13.90 H 11.00 H Troponin I < 0.012 < 0.012 Impressions: Chest X-Ray 08/20/17 12:17 IMPRESSION: NO SIGNIFICANT RADIOGRAPHIC FINDING IN THE CHEST. Head CT 08/20/17 12:17 IMPRESSION: 1. Chronic appearing intracranial changes. No acute abnormality. EVIDENCE OF ACUTE STROKE: NO. Pertinent positive or negative findings of the imaging study reported as a CRITICAL EXAM to ER PROVIDER at11:49 on 08/20/2017. Category of Critical Exam: Stroke alert. Chest/Abdomen CTA 08/20/17 13:08 IMPRESSION: 1. Limiting motion. 2. COPD. 3. No gross pulmonary embolus. Head MRI 08/20/17 13:56 IMPRESSION: Right occipital encephalomalacia consistent with sequela of remote ischemic injury. Background of chronic microvascular and age-related involutional change. EVIDENCE OF ACUTE STROKE: NO. Abdomen Ultrasound 08/20/17 14:44 IMPRESSION: Limited grossly negative study without acute or suspicious abdominal abnormality visualized at ultrasound. Assessment & Plan - Diagnosis (1) Anemia Qualifiers: Anemia type: iron deficiency Iron deficiency anemia type: chronic blood loss Qualified Code(s): D50.0 - Iron deficiency anemia secondary to blood loss (chronic) Is this a current diagnosis for this admission?: Yes Plan: Stable at this time (2) COPD (chronic obstructive pulmonary disease) Qualifiers: Emphysema type: panlobular Is this a current diagnosis for this admission?: Yes Plan: Generic Name Dose Route Start Last Admin Trade Name Freq PRN Reason Stop Dose Admin Methylprednisolone Sodium Succinate 40 mg 08/21/17 14:00 08/21/17 14:15 Solu-Medrol Inj/Pf 40 Mg/1 Ml Sdv IV 09/20/17 13:59 40 mg Q8 LEE Tiotropium [place] 1 cap 08/21/17 10:00 08/21/17 10:42 Spiriva Handihaler 5 Cap/Kit (18 Mcg/Cap) IH 09/20/17 09:59 1 cap DAILY LEE Fluticasone/Salmeterol 1 inh 08/20/17 22:00 08/21/17 10:42 Advair 500-50 Diskus 14 Dose/Diskus IH 09/19/17 21:59 1 inh Q12 LEE continue above regemin with supplemental O2 CT scan diffuse air trapping throughout the lungs ;no subpleural sparing islolated areas of subpleural honeycombing at the bases; ABG would be helpful does patient retain PCO2 rapid desaturation with minimal exertion ???V/Q may be useful (3) Syncope Qualifiers: Syncope type: unspecified Qualified Code(s): R55 - Syncope and collapse Is this a current diagnosis for this admission?: Yes Plan: No new episodes thus far
[2017-08-22] MEDS ORDERED: IPRATROPIUM/ALBUTEROL 0.5-2.5 MG/3 ML AMPUL NEB SCH (16:00)
--- NOTE | 2017-08-22 21:14 | PDOC PROGRESS REPORT ---
Subjective Progress Note for:: 08/22/17 Subjective:: Patient apparently was admitted over the weekend when he had episode of syncope , associated with anemia and severe COPD. He was seen by the bedside, he has very severe COPD with shortness of breath on minimal exertion, he has a history of angiodysplasia, anemia most likely due to chronic blood loss Reason For Visit: POST CARDIAC ARREST,SYNCOPAL EPISODE,ANEMIA Physical Exam Vital Signs: Temp Pulse Resp BP Pulse Ox 99.1 F 77 20 146/76 H 97 08/22/17 19:51 08/22/17 19:51 08/22/17 19:51 08/22/17 19:51 08/22/17 19:51 Intake & Output 08/21/17 08/22/17 08/23/17 06:59 06:59 06:59 Intake Total 2958 1345 671 Output Total 950 1325 675 Balance 2007 Weight 79.1 kg 76.2 kg Head exam: PRESENT: atraumatic, normocephalic Eye exam: PRESENT: conjunctiva pink, EOMI, PERRLA Ear exam: PRESENT: normal external ear exam Mouth exam: PRESENT: moist, tongue midline Neck exam: PRESENT: full ROM Respiratory exam: PRESENT: decreased breath sounds Cardiovascular exam: PRESENT: RRR, +S1, +S2 Pulses: PRESENT: normal dorsalis pedis pul, +2 pedal pulses bilateral Vascular exam: PRESENT: normal capillary refill GI/Abdominal exam: PRESENT: normal bowel sounds, soft Rectal exam: PRESENT: deferred Neurological exam: PRESENT: alert Psychiatric exam: PRESENT: appropriate affect, normal mood Skin exam: PRESENT: dry, intact, warm. ABSENT: cyanosis, rash Results Laboratory Results: 08/22/17 04:11 08/22/17 04:11 08/20/17 08/22/17 08/22/17 17:15 04:11 04:11 WBC 10.1 RBC 4.27 L Hgb 9.2 L Hct 29.9 L MCV 70 L MCH 21.6 L MCHC 30.9 L RDW 21.6 H Plt Count 260 Seg Neutrophils % Not Reportable Lymphocytes % Not Reportable Monocytes % Not Reportable Eosinophils % Not Reportable Basophils % Not Reportable Absolute Neutrophils Not Reportable Absolute Lymphocytes Not Reportable Absolute Monocytes Not Reportable Absolute Eosinophils Not Reportable Absolute Basophils Not Reportable Sodium 142.0 Potassium 4.4 Chloride 103 Carbon Dioxide 25 Anion Gap 14 BUN 12 Creatinine 0.65 Est GFR ( Amer) > 60 Est GFR (Non-Af Amer) > 60 Glucose 148 H Calcium 9.7 Transferrin 342 Total Bilirubin 0.9 AST 29 ALT 30 Alkaline Phosphatase 51 Total Protein 7.2 Albumin 4.3 08/20/17 08/20/17 08/20/17 17:15 17:15 23:15 Creatine Kinase 480 H 559 H CK-MB (CK-2) 14.60 H Troponin I < 0.012 08/20/17 08/21/17 08/21/17 23:15 05:12 05:12 Creatine Kinase 572 H CK-MB (CK-2) 13.90 H 11.00 H Troponin I < 0.012 < 0.012 Impressions: Chest X-Ray 08/20/17 12:17 IMPRESSION: NO SIGNIFICANT RADIOGRAPHIC FINDING IN THE CHEST. Head CT 08/20/17 12:17 IMPRESSION: 1. Chronic appearing intracranial changes. No acute abnormality. EVIDENCE OF ACUTE STROKE: NO. Pertinent positive or negative findings of the imaging study reported as a CRITICAL EXAM to ER PROVIDER at11:49 on 08/20/2017. Category of Critical Exam: Stroke alert. Chest/Abdomen CTA 08/20/17 13:08 IMPRESSION: 1. Limiting motion. 2. COPD. 3. No gross pulmonary embolus. Head MRI 08/20/17 13:56 IMPRESSION: Right occipital encephalomalacia consistent with sequela of remote ischemic injury. Background of chronic microvascular and age-related involutional change. EVIDENCE OF ACUTE STROKE: NO. Abdomen Ultrasound 08/20/17 14:44 IMPRESSION: Limited grossly negative study without acute or suspicious abdominal abnormality visualized at ultrasound. Assessment & Plan - Diagnosis (1) Anemia due to chronic blood loss Is this a current diagnosis for this admission?: Yes (2) Syncope Qualifiers: Syncope type: unspecified Qualified Code(s): R55 - Syncope and collapse (3) COPD (chronic obstructive pulmonary disease) Qualifiers: COPD type: emphysema Emphysema type: panlobular Qualified Code(s): J43.1 - Panlobular emphysema Is this a current diagnosis for this admission?: Yes (4) Syncope Qualifiers: Syncope type: unspecified Qualified Code(s): R55 - Syncope and collapse Is this a current diagnosis for this admission?: Yes (5) Hypoxemia Is this a current diagnosis for this admission?: Yes - Plan Summary Plan Summary: Patient was admitted over the weekend, chart reviewed, hopefully discharge home the next 24 hours
[2017-08-23 05:29] LABS: HEMATOCRIT 27.3 % (37.9-51.0); HEMOGLOBIN 8.4 g/dL (13.5-17.0); HGB HCT DIFFERENCE -2.1; MEAN CORPUSCULAR HEMOGLOBIN 21.4 pg (27.0-33.4); MEAN CORPUSCULAR HGB CONC 30.7 g/dL (32.0-36.0); MEAN CORPUSCULAR VOLUME 70 fl (80-97); RED BLOOD COUNT 3.92 10^6/uL (4.35-5.55); WHITE BLOOD COUNT 18.5 10^3/uL (4.0-10.5)
[2017-08-23 05:49] LABS: ALANINE AMINOTRANSFERASE 30 U/L (21-72); ALBUMIN 3.7 g/dL (3.5-5.0); ALKALINE PHOSPHATASE 49 U/L (38-126); ANION GAP 11 (5-19); ASPARTATE AMINO TRANSFERASE 17 U/L (17-59); BILIRUBIN,DIRECT 0.3 mg/dL (0.0-0.4); BILIRUBIN,TOTAL 0.5 mg/dL (0.2-1.3); BLOOD UREA NITROGEN 20 mg/dL (7-20); CALCIUM 9.2 mg/dL (8.4-10.2); CARBON DIOXIDE 27 mmol/L (22-30); CHLORIDE 103 mmol/L (98-107); CREATININE RESULT 0.69 mg/dL (0.52-1.25); GLUCOSE 126 mg/dL (75-110); POTASSIUM 4.6 mmol/L (3.6-5.0); SODIUM 141.2 mmol/L (137-145); TOTAL PROTEIN 5.8 g/dL (6.3-8.2)
[2017-08-23 06:07] LABS: BASOPHILS % (MANUAL) 0 % (0-2); EOSINOPHILS % (MANUAL) 1 % (0-6); LYMPHOCYTES % (MANUAL) 1 % (13-45); TOTAL CELLS COUNTED 100
[2017-08-23 06:08] LABS: ANISOCYTOSIS 3+; HYPOCHROMASIA 2+; MICROCYTOSIS 2+; OVALOCYTES SLIGHT; POIKILOCYTOSIS 1+; SCHISTOCYTES SLIGHT; TOXIC GRANULATION SLIGHT
[2017-08-23] MEDS: HEPARIN SOD (PORCINE) 5,000 UNIT/ML 1 ML SYRINGE SUBCUT SCH ×3 (06:42→21:20)
[2017-08-23] MEDS: AMLODIPINE BESYLATE 5 MG TABLET PO SCH ×2 (06:42→17:34)
[2017-08-23] MEDS: METHYLPREDNISOLONE INJ 40 MG/1 ML SDV IV SCH ×3 (06:42→21:20)
--- NOTE | 2017-08-23 08:03 | PDOC PROGRESS REPORT ---
Subjective Progress Note for:: 08/23/17 Subjective:: Pt seems better today but hb dropped from 9.2 to 8.4[address] Have [address] Orellana. No BM since admitted Reason For Visit: POST CARDIAC ARREST,SYNCOPAL EPISODE,ANEMIA Physical Exam Vital Signs: Temp Pulse Resp BP Pulse Ox 98.6 F 69 16 146/72 H 97 08/23/17 04:31 08/23/17 04:31 08/23/17 04:31 08/23/17 04:31 08/23/17 04:31 Intake & Output 08/22/17 08/23/17 08/24/17 06:59 06:59 06:59 Intake Total 1345 935 Output Total 1325 1175 Balance 20 -240 Weight 76.2 kg 85.4 kg General appearance: PRESENT: no acute distress, well-developed, well-nourished Head exam: PRESENT: atraumatic, normocephalic Eye exam: PRESENT: conjunctiva pink, EOMI, PERRLA. ABSENT: scleral icterus Ear exam: PRESENT: normal external ear exam Mouth exam: PRESENT: moist, tongue midline Neck exam: ABSENT: carotid bruit, JVD, lymphadenopathy, thyromegaly Respiratory exam: PRESENT: clear to auscultation chetan. ABSENT: rales, rhonchi, wheezes Cardiovascular exam: PRESENT: RRR. ABSENT: diastolic murmur, rubs, systolic murmur Pulses: PRESENT: normal dorsalis pedis pul Vascular exam: PRESENT: normal capillary refill GI/Abdominal exam: PRESENT: normal bowel sounds, soft. ABSENT: distended, guarding, mass, organolmegaly, rebound, tenderness Rectal exam: PRESENT: deferred Extremities exam: PRESENT: full ROM. ABSENT: calf tenderness, clubbing, pedal edema Neurological exam: PRESENT: alert, awake, oriented to person, oriented to place , oriented to time, oriented to situation, CN II-XII grossly intact. ABSENT: motor sensory deficit Psychiatric exam: PRESENT: appropriate affect, normal mood. ABSENT: homicidal ideation, suicidal ideation Skin exam: PRESENT: dry, intact, warm. ABSENT: cyanosis, rash Results Laboratory Results: 08/23/17 04:29 08/23/17 04:29 08/20/17 08/23/17 08/23/17 17:15 04:29 04:29 WBC 18.5 H RBC 3.92 L Hgb 8.4 L Hct 27.3 L MCV 70 L MCH 21.4 L MCHC 30.7 L RDW 22.0 H Plt Count 283 Seg Neutrophils % Not Reportable Lymphocytes % Not Reportable Monocytes % Not Reportable Eosinophils % Not Reportable Basophils % Not Reportable Absolute Neutrophils Not Reportable Absolute Lymphocytes Not Reportable Absolute Monocytes Not Reportable Absolute Eosinophils Not Reportable Absolute Basophils Not Reportable Sodium 141.2 Potassium 4.6 Chloride 103 Carbon Dioxide 27 Anion Gap 11 BUN 20 Creatinine 0.69 Est GFR ( Amer) > 60 Est GFR (Non-Af Amer) > 60 Glucose 126 H Calcium 9.2 Transferrin 342 Total Bilirubin 0.5 AST 17 ALT 30 Alkaline Phosphatase 49 Total Protein 5.8 L Albumin 3.7 08/20/17 08/20/17 08/20/17 17:15 17:15 23:15 Creatine Kinase 480 H 559 H CK-MB (CK-2) 14.60 H Troponin I < 0.012 08/20/17 08/21/17 08/21/17 23:15 05:12 05:12 Creatine Kinase 572 H CK-MB (CK-2) 13.90 H 11.00 H Troponin I < 0.012 < 0.012 Impressions: Chest X-Ray 08/20/17 12:17 IMPRESSION: NO SIGNIFICANT RADIOGRAPHIC FINDING IN THE CHEST. Head CT 08/20/17 12:17 IMPRESSION: 1. Chronic appearing intracranial changes. No acute abnormality. EVIDENCE OF ACUTE STROKE: NO. Pertinent positive or negative findings of the imaging study reported as a CRITICAL EXAM to ER PROVIDER at11:49 on 08/20/2017. Category of Critical Exam: Stroke alert. Chest/Abdomen CTA 08/20/17 13:08 IMPRESSION: 1. Limiting motion. 2. COPD. 3. No gross pulmonary embolus. Head MRI 08/20/17 13:56 IMPRESSION: Right occipital encephalomalacia consistent with sequela of remote ischemic injury. Background of chronic microvascular and age-related involutional change. EVIDENCE OF ACUTE STROKE: NO. Abdomen Ultrasound 08/20/17 14:44 IMPRESSION: Limited grossly negative study without acute or suspicious abdominal abnormality visualized at ultrasound. Assessment & Plan - Diagnosis (1) Anemia Qualifiers: Anemia type: iron deficiency Iron deficiency anemia type: chronic blood loss Qualified Code(s): D50.0 - Iron deficiency anemia secondary to blood loss (chronic) Is this a current diagnosis for this admission?: Yes Plan: Consult Dr. Orellana today, another dose IV iron today. He may benefit from repeat endoscopy and consideration of re-cauterization. - Time Time Spent with patient: 15-24 minutes Critical Time spent with patient: 15-24 minutes - Inpatient Certification Based on my medical assessment, after consideration of the patient's comorbidities, presenting symptoms, or acuity I expect that the services needed warrant INPATIENT care.: Yes Medical Necessity: Need for Surgery, Risk of Complication if Not Cared For in Hospital
[2017-08-23] MEDS: TIOTROPIUM BROMIDE DPI 5 CAP/KIT (18 MCG/CAP) IH SCH (10:00)
[2017-08-23] MEDS: PANTOPRAZOLE SODIUM 40 MG VIAL IV SCH (10:00)
[2017-08-23] MEDS: DOCUSATE SODIUM 100 MG CAPSULE PO SCH (10:00)
[2017-08-23] MEDS ORDERED: FERUMOXYTOL (NON-ESRD) 510 MG/NS 100 ML IV ONE ×2 (10:00)
[2017-08-23] MEDS: FLUTICASONE/SALMETEROL DISKUS 500-50 MCG/DOSE IH SCH ×2 (10:00→21:20)
--- NOTE | 2017-08-23 11:50 | PDOC PROGRESS REPORT ---
Subjective Progress Note for:: 08/23/17 Subjective:: Awaiting the hip plans from GI his hemoglobin continues to decrease Reason For Visit: POST CARDIAC ARREST,SYNCOPAL EPISODE,ANEMIA Physical Exam Vital Signs: Temp Pulse Resp BP Pulse Ox 97.9 F 70 21 H 145/69 H 97 08/23/17 07:31 08/23/17 07:31 08/23/17 07:31 08/23/17 07:31 08/23/17 07:31 Intake & Output 08/22/17 08/23/17 08/24/17 06:59 06:59 06:59 Intake Total 1345 935 Output Total 1325 1175 Balance 20 -240 Weight 76.2 kg 85.4 kg General appearance: PRESENT: no acute distress, cooperative, well-developed, well-nourished. ABSENT: disheveled, hard of hearing, mild distress, morbidly obese, obese, severe distress, thin Head exam: PRESENT: atraumatic, normocephalic Eye exam: PRESENT: conjunctiva pale, EOMI. ABSENT: conjunctival injection, conjunctiva pink, nystagmus, periorbital swelling, scleral icterus Mouth exam: PRESENT: dry mucosa, neck supple, tongue midline. ABSENT: laceration, moist Neck exam: ABSENT: carotid bruit, JVD, lymphadenopathy, thyromegaly, tracheal deviation, tracheostomy Respiratory exam: PRESENT: decreased breath sounds, prolonged expiratory phas, rhonchi, symmetrical, unlabored, wheezes. ABSENT: accessory muscle use, chest wall tenderness, clear to auscultation chetan, crackles, rales, retraction, stridor , tachypnea Cardiovascular exam: PRESENT: RRR, +S1, +S2. ABSENT: bradycardia, clicks, gallop, irregular rhythm, rubs Pulses: PRESENT: normal radial pulses GI/Abdominal exam: PRESENT: normal bowel sounds, soft. ABSENT: distended, guarding, mass, organolmegaly, rebound, tenderness Extremities exam: ABSENT: calf tenderness, clubbing, joint swelling, pedal edema , tenderness Musculoskeletal exam: PRESENT: ambulatory, full ROM. ABSENT: deformity, dislocation, tenderness Neurological exam: ABSENT: alert, altered, awake Psychiatric exam: PRESENT: normal mood Skin exam: PRESENT: dry, warm Results Laboratory Results: 08/23/17 04:29 08/23/17 04:29 08/20/17 08/23/17 08/23/17 17:15 04:29 04:29 WBC 18.5 H RBC 3.92 L Hgb 8.4 L Hct 27.3 L MCV 70 L MCH 21.4 L MCHC 30.7 L RDW 22.0 H Plt Count 283 Seg Neutrophils % Not Reportable Lymphocytes % Not Reportable Monocytes % Not Reportable Eosinophils % Not Reportable Basophils % Not Reportable Absolute Neutrophils Not Reportable Absolute Lymphocytes Not Reportable Absolute Monocytes Not Reportable Absolute Eosinophils Not Reportable Absolute Basophils Not Reportable Sodium 141.2 Potassium 4.6 Chloride 103 Carbon Dioxide 27 Anion Gap 11 BUN 20 Creatinine 0.69 Est GFR ( Amer) > 60 Est GFR (Non-Af Amer) > 60 Glucose 126 H Calcium 9.2 Transferrin 342 Total Bilirubin 0.5 AST 17 ALT 30 Alkaline Phosphatase 49 Total Protein 5.8 L Albumin 3.7 08/20/17 08/20/17 08/20/17 17:15 17:15 23:15 Creatine Kinase 480 H 559 H CK-MB (CK-2) 14.60 H Troponin I < 0.012 08/20/17 08/21/17 08/21/17 23:15 05:12 05:12 Creatine Kinase 572 H CK-MB (CK-2) 13.90 H 11.00 H Troponin I < 0.012 < 0.012 Impressions: Chest X-Ray 08/20/17 12:17 IMPRESSION: NO SIGNIFICANT RADIOGRAPHIC FINDING IN THE CHEST. Head CT 08/20/17 12:17 IMPRESSION: 1. Chronic appearing intracranial changes. No acute abnormality. EVIDENCE OF ACUTE STROKE: NO. Pertinent positive or negative findings of the imaging study reported as a CRITICAL EXAM to ER PROVIDER at11:49 on 08/20/2017. Category of Critical Exam: Stroke alert. Chest/Abdomen CTA 08/20/17 13:08 IMPRESSION: 1. Limiting motion. 2. COPD. 3. No gross pulmonary embolus. Head MRI 08/20/17 13:56 IMPRESSION: Right occipital encephalomalacia consistent with sequela of remote ischemic injury. Background of chronic microvascular and age-related involutional change. EVIDENCE OF ACUTE STROKE: NO. Abdomen Ultrasound 08/20/17 14:44 IMPRESSION: Limited grossly negative study without acute or suspicious abdominal abnormality visualized at ultrasound. Assessment & Plan - Diagnosis (1) Anemia Qualifiers: Anemia type: iron deficiency Iron deficiency anemia type: chronic blood loss Qualified Code(s): D50.0 - Iron deficiency anemia secondary to blood loss (chronic) Is this a current diagnosis for this admission?: Yes Plan: 0.8 DECREASE IN HGB 24H (2) COPD (chronic obstructive pulmonary disease) Qualifiers: COPD type: emphysema Emphysema type: panlobular Qualified Code(s): J43.1 - Panlobular emphysema Is this a current diagnosis for this admission?: Yes Plan: Generic Name Dose Route Start Last Admin Trade Name Ofe PRN Reason Stop Dose Admin Methylprednisolone Sodium Succinate 40 mg 08/21/17 14:00 08/21/17 14:15 Solu-Medrol Inj/Pf 40 Mg/1 Ml Sdv IV 09/20/17 13:59 40 mg Q8 LEE Tiotropium [place] 1 cap 08/21/17 10:00 08/21/17 10:42 Spiriva [place] 5 Cap/Kit (18 Mcg/Cap) IH 09/20/17 09:59 1 cap DAILY LEE Fluticasone/Salmeterol 1 inh 08/20/17 22:00 08/21/17 10:42 Advair 500-50 Diskus 14 Dose/Diskus IH 09/19/17 21:59 1 inh Q12 LEE continue above regemin with supplemental O2 CT scan diffuse air trapping throughout the lungs ;no subpleural sparing islolated areas of subpleural honeycombing at the bases; ABG would be helpful does patient retain PCO2 rapid desaturation with minimal exertion ???V/Q may be useful (3) Syncope Qualifiers: Syncope type: unspecified Qualified Code(s): R55 - Syncope and collapse Is this a current diagnosis for this admission?: Yes Plan: No new episodes thus far
[2017-08-23] MEDS ORDERED: BISACODYL 5 MG TABEC PO ONE (21:00)
--- NOTE | 2017-08-23 21:12 | PDOC PROGRESS REPORT ---
Subjective Progress Note for:: 08/23/17 Subjective:: Patient was seen by the bedside the hemoglobin is lower today compared to yesterday, he has a history of angiodysplasia, the plan is for GI endoscopy tomorrow Reason For Visit: POST CARDIAC ARREST,SYNCOPAL EPISODE,ANEMIA Physical Exam Vital Signs: Temp Pulse Resp BP Pulse Ox 98.5 F 64 18 137/69 H 100 08/23/17 15:38 08/23/17 15:38 08/23/17 15:38 08/23/17 15:38 08/23/17 15:38 Intake & Output 08/22/17 08/23/17 08/24/17 06:59 06:59 06:59 Intake Total 5456 907 8349 Output Total 1325 1175 750 Balance 20 -240 524 Weight 76.2 kg 85.4 kg Head exam: PRESENT: atraumatic, normocephalic Eye exam: PRESENT: conjunctiva pink, EOMI, PERRLA Mouth exam: PRESENT: moist, tongue midline Neck exam: PRESENT: full ROM Cardiovascular exam: PRESENT: RRR, +S1, +S2 Pulses: PRESENT: normal dorsalis pedis pul, +2 pedal pulses bilateral Vascular exam: PRESENT: normal capillary refill GI/Abdominal exam: PRESENT: normal bowel sounds, soft Rectal exam: PRESENT: deferred Neurological exam: PRESENT: alert Psychiatric exam: PRESENT: appropriate affect, normal mood Skin exam: PRESENT: dry, intact, warm. ABSENT: cyanosis, rash Results Laboratory Results: 08/23/17 04:29 08/23/17 04:29 08/23/17 08/23/17 04:29 04:29 WBC 18.5 H RBC 3.92 L Hgb 8.4 L Hct 27.3 L MCV 70 L MCH 21.4 L MCHC 30.7 L RDW 22.0 H Plt Count 283 Seg Neutrophils % Not Reportable Lymphocytes % Not Reportable Monocytes % Not Reportable Eosinophils % Not Reportable Basophils % Not Reportable Absolute Neutrophils Not Reportable Absolute Lymphocytes Not Reportable Absolute Monocytes Not Reportable Absolute Eosinophils Not Reportable Absolute Basophils Not Reportable Sodium 141.2 Potassium 4.6 Chloride 103 Carbon Dioxide 27 Anion Gap 11 BUN 20 Creatinine 0.69 Est GFR ( Amer) > 60 Est GFR (Non-Af Amer) > 60 Glucose 126 H Calcium 9.2 Total Bilirubin 0.5 AST 17 ALT 30 Alkaline Phosphatase 49 Total Protein 5.8 L Albumin 3.7 08/20/17 08/20/17 08/20/17 17:15 17:15 23:15 Creatine Kinase 480 H 559 H CK-MB (CK-2) 14.60 H Troponin I < 0.012 08/20/17 08/21/17 08/21/17 23:15 05:12 05:12 Creatine Kinase 572 H CK-MB (CK-2) 13.90 H 11.00 H Troponin I < 0.012 < 0.012 Impressions: Chest X-Ray 08/20/17 12:17 IMPRESSION: NO SIGNIFICANT RADIOGRAPHIC FINDING IN THE CHEST. Head CT 08/20/17 12:17 IMPRESSION: 1. Chronic appearing intracranial changes. No acute abnormality. EVIDENCE OF ACUTE STROKE: NO. Pertinent positive or negative findings of the imaging study reported as a CRITICAL EXAM to ER PROVIDER at11:49 on 08/20/2017. Category of Critical Exam: Stroke alert. Chest/Abdomen CTA 08/20/17 13:08 IMPRESSION: 1. Limiting motion. 2. COPD. 3. No gross pulmonary embolus. Head MRI 08/20/17 13:56 IMPRESSION: Right occipital encephalomalacia consistent with sequela of remote ischemic injury. Background of chronic microvascular and age-related involutional change. EVIDENCE OF ACUTE STROKE: NO. Abdomen Ultrasound 08/20/17 14:44 IMPRESSION: Limited grossly negative study without acute or suspicious abdominal abnormality visualized at ultrasound. Assessment & Plan - Diagnosis (1) Anemia due to chronic blood loss Is this a current diagnosis for this admission?: Yes (2) Syncope Qualifiers: Syncope type: unspecified Qualified Code(s): R55 - Syncope and collapse Is this a current diagnosis for this admission?: Yes (3) COPD (chronic obstructive pulmonary disease) Qualifiers: COPD type: emphysema Emphysema type: panlobular Qualified Code(s): J43.1 - Panlobular emphysema Is this a current diagnosis for this admission?: Yes (4) Syncope Qualifiers: Syncope type: unspecified Qualified Code(s): R55 - Syncope and collapse Is this a current diagnosis for this admission?: Yes (5) Hypoxemia Is this a current diagnosis for this admission?: Yes - Plan Summary Plan Summary: Continue treatment
--- NOTE | 2017-08-23 23:06 | Palliative Consultation Report ---
Consultation From:: ESTEFANY MORATAYA Consult Reason: Status post cardiorespiratory arrest - HPI HPI: Palliative care Consult visit 08/23/17 12:25- 12-45 PM Appreciate palliaitve consult with this very pleasant and well oriented. 82 year old man who has been on oxygen for a couple of years due to COPD and anemia. He states he had been diagnosed with anemia a couple of years ago and had IV iron which helped rebuild his blood count. However, he was not aware he had become anemic again. Mr. Patrick had gone to the [employer] with his . He said he felt a little odd in the car, but he got out and went to the door of the [employer]. He said suddenly everything went black and he wsa told he passed out and hit his head. He tells me a woman from the building did CPR on him until the paramedics arrived. He doesnt remember any of this of course. But he is very grateful for her help. We discussed his current situation with his respiratory difficulties and his anemia. He is receiving IV iron today and says he feels fine. He reports some soreness in the back of his head and says he has a mild headache. We discussed his wishes for EOL care and what he would want done if he had another cardiac or respiratory situation. He says he certainly would want CPR and even ventilation if he needed because he had such a good outcome this time. Mr. Patrick is awaiting visit by his top ironer and is hoping if he needs endoscopy, they can do it while he is admitted. He said he had some slight GI bleeding years ago which started his anemia. He is willing to have endoscopy again if he needs. Patient lives with his and says she is able to help him at home. His primary care Dr. Melton and he says he will ask him to monitor his bloodwork to keep an eye on his anemia and iron levels. Onset: Just prior to arrival Onset/Duration: Sudden Quality of Pain: Dull Severity: Mild Associated Symptoms: Headache Exacerbated by: Movement Relieved by: Remaining still Past Medical History(Consults) - General Information Source: Patient, [facility] Records Home Medications: Albuterol Sulfate [Proair Hfa Inhalation Aerosol 8.5 gm Mdi] 2 puff IH Q6HP PRN 08/20/17 Fluticasone/Salmeterol [Advair 500-50 Diskus 28 Dose] 1 inh IH Q12 08/20/17 Tamsulosin HCl [Flomax 0.4 mg Cap.sr] 0.4 mg PO DAILY 08/20/17 Tiotropium [place] [Spiriva] 2 cap IH DAILY 08/20/17 Allergies/Adverse Reactions: No Known Allergies Allergy (Verified 01/10/14 09:13) - Social History Lives with: Family Family History: Hypertension Parental Family History Reviewed: No Children Family History Reviewed: No Sibling(s) Family History Reviewed.: No Smoking Status: Former Smoker - Also has asbestosis and on home O2, usually at 2 L. Cigarettes Packs Per Day: 1 Number of Years Smokin Last Time Smoked: 2003. Frequency of Alcohol Use: None Hx Recreational Drug Use: No Drugs: None Hx Prescription Drug Abuse: No - Past Medical History Cardiac Medical History: Reports: Hx Hypertension - CONTROLLED Denies: Hx Congestive Heart Failure, Hx Coronary Artery Disease, Hx Heart Attack Pulmonary Medical History: Reports: Hx Bronchitis, Hx COPD, Other - Asbestosis Denies: Hx Asthma, Hx Pneumonia Neurological Medical History: Denies: Hx Cerebrovascular Accident, Hx Migraine, Hx Seizures Endocrine Medical History: Denies: Hx Diabetes Mellitus Type 1, Hx Diabetes Mellitus Type 2 Renal/ Medical History: Reports: Other - BPH. Denies: Hx End Stage Renal Disease, Hx Peritoneal Dialysis Malignancy Medical History: Reports None GI Medical History: Denies: Hx Cirrhosis, Hx Crohn's Disease, Hx Hepatitis, Hx Hiatal Hernia, Hx Ulcer, Hx Ulcerative Colitis Musculoskeltal Medical History: Reports Hx Arthritis, Denies Hx Fibromyalgia Skin Medical History: Denies Hx Eczema, Denies Hx Psoriasis Psychiatric Medical History: Denies: Hx Bipolar Disorder, Hx Depression, Hx Personality Disorder, Hx Post Traumatic Stress Disorder, Hx Schizoaffective Disorder Traumatic Medical History: Denies: Hx Gunshot Wound Infectious Medical History: Denies: Hx Hepatitis Hematology: Reports: Anemia - TAKES IRON Denies: Sickle Cell Disease - Surgical History Past Surgical History: Reports: Other - bilateral cataracts removed. Denies: Hx Open Heart Surgery - ANGIOPLASTY, Hx Pacemaker Ojective:Exam Vital Signs: Temp Pulse Resp BP Pulse Ox 98.5 F 67 18 137/69 H 100 08/23/17 15:38 08/23/17 16:00 08/23/17 16:00 08/23/17 15:38 08/23/17 16:00 Intake & Output 08/22/17 08/23/17 08/24/17 06:59 06:59 06:59 Intake Total 8645 280 9037 Output Total 1325 1175 750 Balance 20 -240 524 Weight 76.2 kg 85.4 kg - General General Appearance: Appears well, Alert In distress: None - HEENT Head: Normocephalic Eyes: Normal Pupils: PERRLA - Neck Neck: Normal, Supple - Respiratory Respiratory Status: No respiratory distress Breath sounds: Clear - Cardiovascular Rhythm: Regular - Extremities Upper extremity: Normal inspection Lower extremities: Normal inspection - Neurological Orientation: AAOx4 Speech: Normal Cranial nerves: Normal - Psychological Associated symptoms: Normal affect Objective-Diagnostic Laboratory: 08/23/17 04:29 08/23/17 04:29 08/23/17 08/23/17 04:29 04:29 WBC 18.5 H RBC 3.92 L Hgb 8.4 L Hct 27.3 L MCV 70 L MCH 21.4 L MCHC 30.7 L RDW 22.0 H Plt Count 283 Seg Neutrophils % Not Reportable Lymphocytes % Not Reportable Monocytes % Not Reportable Eosinophils % Not Reportable Basophils % Not Reportable Absolute Neutrophils Not Reportable Absolute Lymphocytes Not Reportable Absolute Monocytes Not Reportable Absolute Eosinophils Not Reportable Absolute Basophils Not Reportable Sodium 141.2 Potassium 4.6 Chloride 103 Carbon Dioxide 27 Anion Gap 11 BUN 20 Creatinine 0.69 Est GFR ( Amer) > 60 Est GFR (Non-Af Amer) > 60 Glucose 126 H Calcium 9.2 Total Bilirubin 0.5 AST 17 ALT 30 Alkaline Phosphatase 49 Total Protein 5.8 L Albumin 3.7 08/20/17 08/20/17 08/20/17 17:15 17:15 23:15 Creatine Kinase 480 H 559 H CK-MB (CK-2) 14.60 H Troponin I < 0.012 08/20/17 08/21/17 08/21/17 23:15 05:12 05:12 Creatine Kinase 572 H CK-MB (CK-2) 13.90 H 11.00 H Troponin I < 0.012 < 0.012 Plan and Recommendation Plan and Recommendation: As above, discussed advance directives with this patient in light of his recent syncopal event and need for resuscitation. He states clearly that he would want all measures taken to save his life including CPR again and mechanical ventilation. He reports no pain or symptoms other than fatigue. Will follow if needed. - Time Spent with Patient Time spent with patient: 15 to 30 Minutes
[2017-08-24] MEDS: HEPARIN SOD (PORCINE) 5,000 UNIT/ML 1 ML SYRINGE SUBCUT SCH ×3 (05:28→22:16)
[2017-08-24] MEDS: METHYLPREDNISOLONE INJ 40 MG/1 ML SDV IV SCH ×3 (05:28→22:16)
[2017-08-24] MEDS: AMLODIPINE BESYLATE 5 MG TABLET PO SCH ×2 (05:28→16:48)
[2017-08-24] MEDS ORDERED: PEG 3350/NA SULF,BICARB,CL/KCL 4000 ML PO ONE (08:00)
--- NOTE | 2017-08-24 08:28 | PDOC PROGRESS REPORT ---
Subjective Progress Note for:: 08/24/17 Subjective:: No acute events overnight, patient is currently being prepped for colonoscopy and endoscopy Reason For Visit: POST CARDIAC ARREST,SYNCOPAL EPISODE,ANEMIA Physical Exam Vital Signs: Temp Pulse Resp BP Pulse Ox 99.4 F 66 20 144/68 H 100 08/24/17 04:03 08/24/17 04:03 08/24/17 04:03 08/24/17 04:03 08/24/17 04:03 Intake & Output 08/23/17 08/24/17 08/25/17 06:59 06:59 06:59 Intake Total 935 1624 Output Total 1175 1350 325 Balance -240 274 -325 Weight 85.4 kg 86.3 kg General appearance: PRESENT: no acute distress, well-developed, well-nourished Head exam: PRESENT: atraumatic, normocephalic Eye exam: PRESENT: conjunctiva pink, EOMI, PERRLA. ABSENT: scleral icterus Ear exam: PRESENT: normal external ear exam Mouth exam: PRESENT: moist, tongue midline Neck exam: ABSENT: carotid bruit, JVD, lymphadenopathy, thyromegaly Respiratory exam: PRESENT: clear to auscultation chetan. ABSENT: rales, rhonchi, wheezes Cardiovascular exam: PRESENT: RRR. ABSENT: diastolic murmur, rubs, systolic murmur Pulses: PRESENT: normal dorsalis pedis pul Vascular exam: PRESENT: normal capillary refill GI/Abdominal exam: PRESENT: normal bowel sounds, soft. ABSENT: distended, guarding, mass, organolmegaly, rebound, tenderness Rectal exam: PRESENT: deferred Extremities exam: PRESENT: full ROM. ABSENT: calf tenderness, clubbing, pedal edema Neurological exam: PRESENT: alert, awake, oriented to person, oriented to place , oriented to time, oriented to situation, CN II-XII grossly intact. ABSENT: motor sensory deficit Psychiatric exam: PRESENT: appropriate affect, normal mood. ABSENT: homicidal ideation, suicidal ideation Skin exam: PRESENT: dry, intact, warm. ABSENT: cyanosis, rash Results Laboratory Results: 08/23/17 04:29 08/23/17 04:29 08/20/17 08/20/17 08/20/17 17:15 17:15 23:15 Creatine Kinase 480 H 559 H CK-MB (CK-2) 14.60 H Troponin I < 0.012 08/20/17 08/21/17 08/21/17 23:15 05:12 05:12 Creatine Kinase 572 H CK-MB (CK-2) 13.90 H 11.00 H Troponin I < 0.012 < 0.012 Impressions: Chest X-Ray 08/20/17 12:17 IMPRESSION: NO SIGNIFICANT RADIOGRAPHIC FINDING IN THE CHEST. Head CT 08/20/17 12:17 IMPRESSION: 1. Chronic appearing intracranial changes. No acute abnormality. EVIDENCE OF ACUTE STROKE: NO. Pertinent positive or negative findings of the imaging study reported as a CRITICAL EXAM to ER PROVIDER at11:49 on 08/20/2017. Category of Critical Exam: Stroke alert. Chest/Abdomen CTA 08/20/17 13:08 IMPRESSION: 1. Limiting motion. 2. COPD. 3. No gross pulmonary embolus. Head MRI 08/20/17 13:56 IMPRESSION: Right occipital encephalomalacia consistent with sequela of remote ischemic injury. Background of chronic microvascular and age-related involutional change. EVIDENCE OF ACUTE STROKE: NO. Abdomen Ultrasound 08/20/17 14:44 IMPRESSION: Limited grossly negative study without acute or suspicious abdominal abnormality visualized at ultrasound. Assessment & Plan - Diagnosis (1) Anemia Qualifiers: Anemia type: iron deficiency Iron deficiency anemia type: chronic blood loss Qualified Code(s): D50.0 - Iron deficiency anemia secondary to blood loss (chronic) Is this a current diagnosis for this admission?: Yes Plan: Secondary to recurrent AVMs, endoscopies pending, plan for CBC tomorrow, if things are stable by tomorrow patient should probably discharged at that point. Patient does have follow-up in our office for continued monitoring of CBC.
[2017-08-24] MEDS: DOCUSATE SODIUM 100 MG CAPSULE PO SCH (09:15)
[2017-08-24] MEDS: TIOTROPIUM BROMIDE DPI 5 CAP/KIT (18 MCG/CAP) IH SCH (09:17)
[2017-08-24] MEDS: FLUTICASONE/SALMETEROL DISKUS 500-50 MCG/DOSE IH SCH ×2 (09:17→22:15)
[2017-08-24] MEDS ORDERED: NALOXONE HCL INJ/PF 0.4 MG/1 ML SDV ONE (16:32)
[2017-08-24] MEDS ORDERED: MIDAZOLAM 2 MG/2 ML INJ ONE ×2 (16:33)
[2017-08-24] MEDS ORDERED: EPINEPHRINE INJ 1 MG/10 ML DISP.SYRIN ONE (16:34)
[2017-08-24] MEDS ORDERED: FLUMAZENIL INJ 0.5 MG/5 ML VIAL ONE (16:34)
[2017-08-24] MEDS ORDERED: GLUCAGON,HUMAN RECOMB 1 MG INJ ONE (16:34)
[2017-08-24] MEDS ORDERED: FENTANYL CITRATE INJ/PF 100 MCG/2 ML AMPUL ONE (16:34)
--- NOTE | 2017-08-24 17:55 | PDOC PROGRESS REPORT ---
Subjective Progress Note for:: 08/24/17 Subjective:: Patient is scheduled for EGD and colonoscopy today Reason For Visit: POST CARDIAC ARREST,SYNCOPAL EPISODE,ANEMIA Physical Exam Vital Signs: Temp Pulse Resp BP Pulse Ox 97.3 F 86 19 169/89 H 92 08/24/17 15:22 08/24/17 15:22 08/24/17 15:22 08/24/17 15:22 08/24/17 15:22 Intake & Output 08/23/17 08/24/17 08/25/17 06:59 06:59 06:59 Intake Total 935 1624 1155 Output Total 1175 1350 525 Balance -240 274 630 Weight 85.4 kg 86.3 kg General appearance: PRESENT: no acute distress Head exam: PRESENT: atraumatic, normocephalic Ear exam: PRESENT: normal external ear exam Mouth exam: PRESENT: moist, tongue midline Neck exam: PRESENT: full ROM Respiratory exam: PRESENT: clear to auscultation chetan Cardiovascular exam: PRESENT: RRR, +S1, +S2 Vascular exam: PRESENT: normal capillary refill GI/Abdominal exam: PRESENT: normal bowel sounds, soft Rectal exam: PRESENT: deferred Neurological exam: PRESENT: alert Psychiatric exam: PRESENT: appropriate affect, normal mood Skin exam: PRESENT: dry, intact, warm. ABSENT: cyanosis, rash Results Laboratory Results: 08/23/17 04:29 08/23/17 04:29 08/20/17 08/20/17 08/20/17 17:15 17:15 23:15 Creatine Kinase 480 H 559 H CK-MB (CK-2) 14.60 H Troponin I < 0.012 08/20/17 08/21/17 08/21/17 23:15 05:12 05:12 Creatine Kinase 572 H CK-MB (CK-2) 13.90 H 11.00 H Troponin I < 0.012 < 0.012 Impressions: Chest X-Ray 08/20/17 12:17 IMPRESSION: NO SIGNIFICANT RADIOGRAPHIC FINDING IN THE CHEST. Head CT 08/20/17 12:17 IMPRESSION: 1. Chronic appearing intracranial changes. No acute abnormality. EVIDENCE OF ACUTE STROKE: NO. Pertinent positive or negative findings of the imaging study reported as a CRITICAL EXAM to ER PROVIDER at11:49 on 08/20/2017. Category of Critical Exam: Stroke alert. Chest/Abdomen CTA 08/20/17 13:08 IMPRESSION: 1. Limiting motion. 2. COPD. 3. No gross pulmonary embolus. Head MRI 08/20/17 13:56 IMPRESSION: Right occipital encephalomalacia consistent with sequela of remote ischemic injury. Background of chronic microvascular and age-related involutional change. EVIDENCE OF ACUTE STROKE: NO. Abdomen Ultrasound 08/20/17 14:44 IMPRESSION: Limited grossly negative study without acute or suspicious abdominal abnormality visualized at ultrasound. 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
--- NOTE | 2017-08-24 19:17 | PDOC CONSULTATION ---
Consultation Consult Date: 08/23/17 History of Present Illness Admission Date/PCP: 08/20/17 14:49 NAOMI PEÑALOZA MD History of Present Illness: This is an 82-year-old patient who was admitted on 08/20/2017 with syncopal episodes. His hemoglobin on admission was 7.8 with microcytosis. He initially was transfused with his hemoglobin going up to 9.3 but it came back down to 8 hence the consultation. Patient denies any black stools, hematemesis, or bright red blood per rectum. He has a history of colonic angiodysplasia that were treated by colonoscopy and cauterization in February 2013. He had AVMs in the cecum and proximal ascending colon. His EGD in January 2015 was normal. Past Medical History Cardiac Medical History: Reports: Hypertension - CONTROLLED Denies: Congestive Heart Failure, Coronary Artery Disease, Myocardial Infarction Pulmonary Medical History: Reports: Bronchitis, Chronic Obstructive Pulmonary Disease (COPD), Other - Asbestosis Denies: Asthma, Pneumonia EENT Medical History: Reports: Cataracts Neurological Medical History: Reports: Seizures Denies: Migraine, Multiple Sclerosis Endocrine Medical History: Denies: Diabetes Mellitus Type 1, Diabetes Mellitus Type 2, Gestational Diabetes Renal/ Medical History: Reports: Other - BPH Denies: End Stage Renal Disease, Nephrolithiasis Malignancy Medical History: Reports: None GI Medical History: Denies: Cirrhosis, Crohn's Disease, Hepatitis, Hiatal Hernia, Ulcerative Colitis Musculoskeltal Medical History: Reports: Arthritis Denies: Fibromyalgia Skin Medical History: Denies: Eczema, Psoriasis Psychiatric Medical History: Denies: Alcohol Dependency, Bipolar Disorder, Depression, General Anxiety Disorder, Personality Disorder, Post Traumatic Stress Disorder, Schizoaffective Disorder, Substance Abuse Traumatic Medical History: Denies: Gunshot Wound, Stab Wound Hematology: Reports: Anemia - TAKES IRON Denies: Sickle Cell Disease Infectious Medical History: Denies: Hepatitis B, Hepatitis C Past Surgical History Past Surgical History: Reports: Other - bilateral cataracts removed Denies: Pacemaker Social History Lives with: Family Smoking Status: Former Smoker - Also has asbestosis and on home O2, usually at 2 L. Cigarettes Packs Per Day: 1 Number of Years Smokin Last Time Smoked: 2003. Frequency of Alcohol Use: None Hx Recreational Drug Use: No Drugs: None Hx Prescription Drug Abuse: No - Advance Directive Resuscitation Status: Full Code Family History Family History: Hypertension Parental Family History Reviewed: No Children Family History Reviewed: NA Sibling(s) Family History Reviewed.: NA Medication/Allergy Home Medications: Albuterol Sulfate [Proair Hfa Inhalation Aerosol 8.5 gm Mdi] 2 puff IH Q6HP PRN 08/20/17 Fluticasone/Salmeterol [Advair 500-50 Diskus 28 Dose] 1 inh IH Q12 08/20/17 Tamsulosin HCl [Flomax 0.4 mg Cap.sr] 0.4 mg PO DAILY 08/20/17 Tiotropium [place] [Spiriva] 2 cap IH DAILY 08/20/17 Allergies/Adverse Reactions: No Known Allergies Allergy (Verified 01/10/14 09:13) Review of Systems All systems: reviewed and no additional remarkable complaints except as stated Physical Exam Vital Signs: Temp Pulse Resp BP Pulse Ox 97.3 F 69 22 H 142/63 H 94 08/24/17 15:22 08/24/17 19:00 08/24/17 19:00 08/24/17 19:00 08/24/17 19:00 Intake & Output 08/23/17 08/24/17 08/25/17 06:59 06:59 06:59 Intake Total 935 1624 1160 Output Total 1175 1350 525 Balance -240 274 635 Weight 85.4 kg 86.3 kg Exam: General: Patient is alert and looks well. HEENT: There is pallor but no jaundice . PERRLA. Oropharynx normal Respiratory: No chest deformity. No respiratory distress. Chest wall palpitation was unremarkable. Breath sounds were normal Cardiovascular: Heart sounds 1 and 2 normal with no murmurs. Abdominal: Not distended. Soft and nontender. Liver and spleen not palpable. No ascites demonstrated. Bowel sounds active. Rectal examination was deferred. Extremities: No edema Neurological: Alert and oriented x4. Grossly nonfocal. Normal speech Skin: No significant rash Psychological: Normal affect Results Laboratory Results: 08/23/17 04:29 08/23/17 04:29 08/20/17 08/20/17 08/20/17 17:15 17:15 23:15 Creatine Kinase 480 H 559 H CK-MB (CK-2) 14.60 H Troponin I < 0.012 08/20/17 08/21/17 08/21/17 23:15 05:12 05:12 Creatine Kinase 572 H CK-MB (CK-2) 13.90 H 11.00 H Troponin I < 0.012 < 0.012 Impressions: Chest X-Ray 08/20/17 12:17 IMPRESSION: NO SIGNIFICANT RADIOGRAPHIC FINDING IN THE CHEST. Head CT 08/20/17 12:17 IMPRESSION: 1. Chronic appearing intracranial changes. No acute abnormality. EVIDENCE OF ACUTE STROKE: NO. Pertinent positive or negative findings of the imaging study reported as a CRITICAL EXAM to ER PROVIDER at11:49 on 08/20/2017. Category of Critical Exam: Stroke alert. Chest/Abdomen CTA 08/20/17 13:08 IMPRESSION: 1. Limiting motion. 2. COPD. 3. No gross pulmonary embolus. Head MRI 08/20/17 13:56 IMPRESSION: Right occipital encephalomalacia consistent with sequela of remote ischemic injury. Background of chronic microvascular and age-related involutional change. EVIDENCE OF ACUTE STROKE: NO. Abdomen Ultrasound 08/20/17 14:44 IMPRESSION: Limited grossly negative study without acute or suspicious abdominal abnormality visualized at ultrasound. Assessment & Plan - Diagnosis (1) Iron deficiency anemia due to chronic blood loss Is this a current diagnosis for this admission?: Yes Plan: He has a history of iron deficiency anemia probably related to his GI angiodysplasia. He will undergo an EGD and colonoscopy with cauterization of identified angiodysplasia. He should remain on iron supplements with regular CBC checks (2) Angiodysplasia of colon with hemorrhage Is this a current diagnosis for this admission?: Yes (3) Anemia due to chronic blood loss Is this a current diagnosis for this admission?: Yes (4) COPD (chronic obstructive pulmonary disease) Qualifiers: Chronic bronchitis type: unspecified
--- NOTE | 2017-08-24 19:20 | Operative Report ---
Operative Report DATE OF SURGERY: 08/24/17 Operative Report: Pre-op diagnosis: Iron deficiency anemia Post-op diagnosis: 1. Angiodysplasias in the duodenum and proximal jejunum 2. Cecal angiodysplasias 3. Left-sided diverticulosis 4.? Esophageal candidiasis Surgery: Upper endoscopy with cauterization, and Colonoscopy with argon plasma cauterization Medications: Versed mg, Fentanyl mcg IV push Tissue removed: Esophageal brushing for yeast staining, Procedure: After informed consent obtained from patient, patient's pharynx was sprayed with [place] and conscious sedation was achieved. The upper endoscope was then inserted into the esophagus under direct vision and advanced into the stomach and further into the duodenum. Detailed examination of the duodenum, stomach and the esophagus was then performed. A digital rectal examination was performed and this was unremarkable. The colonoscope was inserted into the rectum and advanced to the cecum. The appendiceal orifice and the terminal ileum were both identified. The mucosa was examined into details as the colonoscope was slowly pulled out of the patient. The endoscope was retroflexed in the rectum. Patient tolerated the procedure well. Findings Esophagus: Whitish exudates noted in the mid and lower esophagus. Brushing was taken Stomach: Normal Duodenum and jejunum: 3 small angiodysplasias identified in the second part of duodenum and cauterized. For other small angiodysplasias were cauterized in the proximal jejunum. Terminal ileum: Normal Cecum: Four 5-7 angiodysplasias were cauterized Ascending colon: Normal Transverse colon: Normal Descending colon: Few diverticuli Sigmoid colon: Multiple diverticuli Rectum: Normal except for internal hemorrhoids Plan: Follow-up H&H and continue iron supplements OPERATION: .
[2017-08-24 21:50] LABS: HEMATOCRIT 32.6 % (37.9-51.0); HEMOGLOBIN 10.1 g/dL (13.5-17.0); HGB HCT DIFFERENCE -2.3; MEAN CORPUSCULAR HEMOGLOBIN 22.4 pg (27.0-33.4); MEAN CORPUSCULAR HGB CONC 31.1 g/dL (32.0-36.0); MEAN CORPUSCULAR VOLUME 72 fl (80-97); RED BLOOD COUNT 4.52 10^6/uL (4.35-5.55); RED CELL DISTRIBUTION WIDTH 22.8 % (11.5-14.0); WHITE BLOOD COUNT 18.6 10^3/uL (4.0-10.5)
[2017-08-24 22:14] LABS: ALANINE AMINOTRANSFERASE 29 U/L (21-72); ALBUMIN 4.5 g/dL (3.5-5.0); ALKALINE PHOSPHATASE 55 U/L (38-126); ANION GAP 15 (5-19); ASPARTATE AMINO TRANSFERASE 27 U/L (17-59); BILIRUBIN,DIRECT 0.4 mg/dL (0.0-0.4); BILIRUBIN,TOTAL 0.8 mg/dL (0.2-1.3); BLOOD UREA NITROGEN 17 mg/dL (7-20); CALCIUM 9.4 mg/dL (8.4-10.2); CARBON DIOXIDE 28 mmol/L (22-30); CHLORIDE 100 mmol/L (98-107); CREATININE RESULT 0.62 mg/dL (0.52-1.25); GLUCOSE 123 mg/dL (75-110); POTASSIUM 4.1 mmol/L (3.6-5.0); SODIUM 142.9 mmol/L (137-145); TOTAL PROTEIN 7.3 g/dL (6.3-8.2)
[2017-08-24 22:34] LABS: BAND NEUTROPHILS % (MANUAL) 1 % (3-5); BASOPHILS % (MANUAL) 0 % (0-2); EOSINOPHILS % (MANUAL) 0 % (0-6); LYMPHOCYTES % (MANUAL) 9 % (13-45); NUCLEATED RED BLOOD CELLS 1 /100 WBC (0); TOTAL CELLS COUNTED 100
[2017-08-24 22:38] LABS: ANISOCYTOSIS 3+; MICROCYTOSIS 1+; OVALOCYTES SLIGHT; POIKILOCYTOSIS 1+; POLYCHROMASIA SLIGHT
[2017-08-24 22:39] LABS: HYPOCHROMASIA 1+; TEAR DROP CELLS SLIGHT
[2017-08-24 22:40] LABS: TARGET CELLS SLIGHT
[2017-08-25 05:25] LABS: HEMATOCRIT 28.9 % (37.9-51.0); HGB HCT DIFFERENCE -1.9; MEAN CORPUSCULAR HEMOGLOBIN 22.3 pg (27.0-33.4); MEAN CORPUSCULAR HGB CONC 31.2 g/dL (32.0-36.0); MEAN CORPUSCULAR VOLUME 71 fl (80-97); RED BLOOD COUNT 4.05 10^6/uL (4.35-5.55); RED CELL DISTRIBUTION WIDTH 22.9 % (11.5-14.0); WHITE BLOOD COUNT 14.9 10^3/uL (4.0-10.5)
[2017-08-25] MEDS: AMLODIPINE BESYLATE 5 MG TABLET PO SCH (05:57)
[2017-08-25] MEDS: METHYLPREDNISOLONE INJ 40 MG/1 ML SDV IV SCH (05:57)
[2017-08-25] MEDS: HEPARIN SOD (PORCINE) 5,000 UNIT/ML 1 ML SYRINGE SUBCUT SCH (05:57)
[2017-08-25 06:12] LABS: BASOPHILS % (MANUAL) 0 % (0-2); EOSINOPHILS % (MANUAL) 0 % (0-6); LYMPHOCYTES % (MANUAL) 2 % (13-45); NUCLEATED RED BLOOD CELLS 1 /100 WBC (0); TOTAL CELLS COUNTED 100
[2017-08-25 06:13] LABS: MICROCYTOSIS SLIGHT; POLYCHROMASIA SLIGHT
[2017-08-25 06:14] LABS: ACANTHOCYTES SLIGHT; ANISOCYTOSIS 3+; BURR CELLS SLIGHT; OVALOCYTES 2+
[2017-08-25 06:15] LABS: TARGET CELLS 2+; TEAR DROP CELLS 2+
--- NOTE | 2017-08-25 06:27 | PDOC PROGRESS REPORT ---
Subjective Progress Note for:: 08/24/17 Subjective:: EGD colonoscopy Reason For Visit: POST CARDIAC ARREST,SYNCOPAL EPISODE,ANEMIA Physical Exam Vital Signs: Temp Pulse Resp BP Pulse Ox 99.4 F 66 20 144/68 H 100 08/24/17 04:03 08/24/17 04:03 08/24/17 04:03 08/24/17 04:03 08/24/17 04:03 Intake & Output 08/22/17 08/23/17 08/24/17 06:59 06:59 06:59 Intake Total 3273 193 6212 Output Total 1325 1175 1250 Balance 20 -240 324 Weight 76.2 kg 85.4 kg General appearance: PRESENT: cooperative, disheveled, well-developed, well- nourished. ABSENT: no acute distress, hard of hearing, mild distress, morbidly obese, obese, severe distress, thin Head exam: PRESENT: atraumatic, normocephalic Eye exam: PRESENT: conjunctiva pale, EOMI. ABSENT: conjunctival injection, conjunctiva pink, nystagmus, periorbital swelling, scleral icterus Mouth exam: PRESENT: dry mucosa, neck supple, tongue midline. ABSENT: laceration Neck exam: ABSENT: carotid bruit, JVD, lymphadenopathy, thyromegaly, tracheal deviation, tracheostomy Respiratory exam: PRESENT: decreased breath sounds, prolonged expiratory phas, rhonchi, symmetrical, unlabored. ABSENT: accessory muscle use, chest wall tenderness, clear to auscultation chetan, crackles, rales, retraction, stridor, tachypnea, wheezes Cardiovascular exam: PRESENT: RRR, +S1, +S2. ABSENT: rubs Pulses: PRESENT: normal radial pulses GI/Abdominal exam: PRESENT: normal bowel sounds, soft. ABSENT: distended, guarding, mass, organolmegaly, rebound, tenderness Extremities exam: ABSENT: calf tenderness, clubbing, joint swelling Musculoskeletal exam: PRESENT: ambulatory. ABSENT: deformity, dislocation Neurological exam: PRESENT: alert, awake Psychiatric exam: PRESENT: normal mood Skin exam: PRESENT: dry, warm Results Laboratory Results: 08/23/17 04:29 08/23/17 04:29 08/20/17 08/20/17 08/20/17 17:15 17:15 23:15 Creatine Kinase 480 H 559 H CK-MB (CK-2) 14.60 H Troponin I < 0.012 08/20/17 08/21/17 08/21/17 23:15 05:12 05:12 Creatine Kinase 572 H CK-MB (CK-2) 13.90 H 11.00 H Troponin I < 0.012 < 0.012 Impressions: Chest X-Ray 08/20/17 12:17 IMPRESSION: NO SIGNIFICANT RADIOGRAPHIC FINDING IN THE CHEST. Head CT 08/20/17 12:17 IMPRESSION: 1. Chronic appearing intracranial changes. No acute abnormality. EVIDENCE OF ACUTE STROKE: NO. Pertinent positive or negative findings of the imaging study reported as a CRITICAL EXAM to ER PROVIDER at11:49 on 08/20/2017. Category of Critical Exam: Stroke alert. Chest/Abdomen CTA 08/20/17 13:08 IMPRESSION: 1. Limiting motion. 2. COPD. 3. No gross pulmonary embolus. Head MRI 08/20/17 13:56 IMPRESSION: Right occipital encephalomalacia consistent with sequela of remote ischemic injury. Background of chronic microvascular and age-related involutional change. EVIDENCE OF ACUTE STROKE: NO. Abdomen Ultrasound 08/20/17 14:44 IMPRESSION: Limited grossly negative study without acute or suspicious abdominal abnormality visualized at ultrasound. 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 Qualified Code(s): J43.1 - Panlobular emphysema Is this a current diagnosis for this admission?: Yes Plan: Generic Name Dose Route Start Last Admin Trade Name Freq PRN Reason Stop Dose Admin Methylprednisolone Sodium Succinate 40 mg 08/21/17 14:00 08/21/17 14:15 Solu-Medrol Inj/Pf 40 Mg/1 Ml Sdv IV 09/20/17 13:59 40 mg Q8 LEE Tiotropium [place] 1 cap 08/21/17 10:00 08/21/17 10:42 Spiriva [place] 5 Cap/Kit (18 Mcg/Cap) IH 09/20/17 09:59 1 cap DAILY LEE Fluticasone/Salmeterol 1 inh 08/20/17 22:00 08/21/17 10:42 Advair 500-50 Diskus 14 Dose/Diskus IH 09/19/17 21:59 1 inh Q12 LEE continue above regemin with supplemental O2 CT scan diffuse air trapping throughout the lungs ;no subpleural sparing islolated areas of subpleural honeycombing at the bases; ABG would be helpful does patient retain PCO2 rapid desaturation with minimal exertion ???V/Q may be useful (3) Syncope Qualifiers: Syncope type: unspecified Qualified Code(s): R55 - Syncope and collapse Is this a current diagnosis for this admission?: Yes Plan: no new events reported
[2017-08-25] MEDS ORDERED: LANSOPRAZOLE 30 MG TAB.RAP.DR PO SCH (08:00)
[2017-08-25] MEDS: FLUTICASONE/SALMETEROL DISKUS 500-50 MCG/DOSE IH SCH (08:55)
[2017-08-25] MEDS: TIOTROPIUM BROMIDE DPI 5 CAP/KIT (18 MCG/CAP) IH SCH (08:56)
[2017-08-25 09:02] VITALS: BP 154/75
--- NOTE | 2017-08-25 09:06 | PDOC PROGRESS REPORT ---
Subjective Progress Note for:: 08/25/17 Subjective:: Patient did have endoscopy, multiple AVMs cauterized, hemoglobin seems stable. Reason For Visit: POST CARDIAC ARREST,SYNCOPAL EPISODE,ANEMIA Physical Exam Vital Signs: Temp Pulse Resp BP Pulse Ox 98.1 F 67 21 H 154/75 H 90 L 08/25/17 08:51 08/25/17 08:51 08/25/17 08:51 08/25/17 08:51 08/25/17 08:51 Intake & Output 08/24/17 08/25/17 08/26/17 06:59 06:59 06:59 Intake Total 1624 2314 Output Total 1350 1225 Balance 274 1089 Weight 86.3 kg 83.7 kg General appearance: PRESENT: no acute distress, well-developed, well-nourished Head exam: PRESENT: atraumatic, normocephalic Eye exam: PRESENT: conjunctiva pink, EOMI, PERRLA. ABSENT: scleral icterus Ear exam: PRESENT: normal external ear exam Mouth exam: PRESENT: moist, tongue midline Neck exam: ABSENT: carotid bruit, JVD, lymphadenopathy, thyromegaly Respiratory exam: PRESENT: clear to auscultation chetan. ABSENT: rales, rhonchi, wheezes Cardiovascular exam: PRESENT: RRR. ABSENT: diastolic murmur, rubs, systolic murmur Pulses: PRESENT: normal dorsalis pedis pul Vascular exam: PRESENT: normal capillary refill GI/Abdominal exam: PRESENT: normal bowel sounds, soft. ABSENT: distended, guarding, mass, organolmegaly, rebound, tenderness Rectal exam: PRESENT: deferred Extremities exam: PRESENT: full ROM. ABSENT: calf tenderness, clubbing, pedal edema Neurological exam: PRESENT: alert, awake, oriented to person, oriented to place , oriented to time, oriented to situation, CN II-XII grossly intact. ABSENT: motor sensory deficit Psychiatric exam: PRESENT: appropriate affect, normal mood. ABSENT: homicidal ideation, suicidal ideation Skin exam: PRESENT: dry, intact, warm. ABSENT: cyanosis, rash Results Laboratory Results: 08/25/17 04:10 08/24/17 21:35 08/24/17 08/24/17 08/25/17 21:35 21:35 04:10 WBC 18.6 H 14.9 H RBC 4.52 4.05 L Hgb 10.1 L 9.0 L Hct 32.6 L 28.9 L MCV 72 L 71 L MCH 22.4 L 22.3 L MCHC 31.1 L 31.2 L RDW 22.8 H 22.9 H Plt Count 292 295 Seg Neutrophils % Not Reportable Not Reportable Lymphocytes % Not Reportable Not Reportable Monocytes % Not Reportable Not Reportable Eosinophils % Not Reportable Not Reportable Basophils % Not Reportable Not Reportable Absolute Neutrophils Not Reportable Not Reportable Absolute Lymphocytes Not Reportable Not Reportable Absolute Monocytes Not Reportable Not Reportable Absolute Eosinophils Not Reportable Not Reportable Absolute Basophils Not Reportable Not Reportable Sodium 142.9 Potassium 4.1 Chloride 100 Carbon Dioxide 28 Anion Gap 15 BUN 17 Creatinine 0.62 Est GFR ( Amer) > 60 Est GFR (Non-Af Amer) > 60 Glucose 123 H Calcium 9.4 Total Bilirubin 0.8 AST 27 ALT 29 Alkaline Phosphatase 55 Total Protein 7.3 Albumin 4.5 08/20/17 08/20/17 08/20/17 17:15 17:15 23:15 Creatine Kinase 480 H 559 H CK-MB (CK-2) 14.60 H Troponin I < 0.012 08/20/17 08/21/17 08/21/17 23:15 05:12 05:12 Creatine Kinase 572 H CK-MB (CK-2) 13.90 H 11.00 H Troponin I < 0.012 < 0.012 Impressions: Chest X-Ray 08/20/17 12:17 IMPRESSION: NO SIGNIFICANT RADIOGRAPHIC FINDING IN THE CHEST. Head CT 08/20/17 12:17 IMPRESSION: 1. Chronic appearing intracranial changes. No acute abnormality. EVIDENCE OF ACUTE STROKE: NO. Pertinent positive or negative findings of the imaging study reported as a CRITICAL EXAM to ER PROVIDER at11:49 on 08/20/2017. Category of Critical Exam: Stroke alert. Chest/Abdomen CTA 08/20/17 13:08 IMPRESSION: 1. Limiting motion. 2. COPD. 3. No gross pulmonary embolus. Head MRI 08/20/17 13:56 IMPRESSION: Right occipital encephalomalacia consistent with sequela of remote ischemic injury. Background of chronic microvascular and age-related involutional change. EVIDENCE OF ACUTE STROKE: NO. Abdomen Ultrasound 08/20/17 14:44 IMPRESSION: Limited grossly negative study without acute or suspicious abdominal abnormality visualized at ultrasound. Assessment & Plan - Diagnosis (1) Anemia Qualifiers: Anemia type: iron deficiency Iron deficiency anemia type: chronic blood loss Qualified Code(s): D50.0 - Iron deficiency anemia secondary to blood loss (chronic) Is this a current diagnosis for this admission?: Yes Plan: We will have follow-up in 3 weeks post discharge, he will need continued IV iron in the future. Discharge home today. Follow-up in office. - Time Time Spent with patient: 25-34 minutes Anticipated discharge: Home
[2017-08-26 10:33] LABS: HYPOCHROMASIA 1+; POIKILOCYTOSIS 2+; ROULEAUX 1+
--- NOTE | 2017-08-27 12:35 | PDOC DISCHARGE SUMMARY ---
General - Admit/Disc Date/PCP Admission Date/Primary Care Provider: 08/20/17 14:49 NAOMI PEÑALOZA MD Discharge Date: 08/25/17 - Discharge Diagnosis (1) Loss of consciousness Is this a current diagnosis for this admission?: Yes (2) Anemia due to chronic blood loss Is this a current diagnosis for this admission?: Yes (3) Syncope Is this a current diagnosis for this admission?: Yes (4) COPD (chronic obstructive pulmonary disease) Is this a current diagnosis for this admission?: Yes (5) Hypoxemia Is this a current diagnosis for this admission?: Yes (6) Angiodysplasia of cecum Is this a current diagnosis for this admission?: Yes (7) Angiodysplasia of duodenum Is this a current diagnosis for this admission?: Yes (8) Angiodysplasia of gastrointestinal tract Is this a current diagnosis for this admission?: Yes (9) Angiodysplasia of small intestine Is this a current diagnosis for this admission?: Yes (10) Angiodysplasia of intestine with hemorrhage Is this a current diagnosis for this admission?: Yes - Additional Information Resuscitation Status: Full Code Discharge Diet: As Tolerated Discharge Activity: Activity As Tolerated Home Medications: Albuterol Sulfate [Proair HFA Inhalation Aerosol 8.5 gm MDI] 2 puff IH Q6HP PRN 08/20/17 Fluticasone/Salmeterol [Advair 500-50 Diskus 28 Dose] 1 inh IH Q12 08/20/17 Tamsulosin HCl [Flomax 0.4 mg Cap.sr] 0.4 mg PO DAILY 08/20/17 Tiotropium [place] [Spiriva] 2 cap IH DAILY 08/20/17 History of Present Illness History of Present Illness: BROCK MORGAN is a 82 year old male, he was admitted on 08/20/2017 due to loss of consciousness, he apparently just returned from [place], the history was that on return back for [facility] patient slept through the entire trip back when they arrived in [place] fell out of the car and became unresponsive. A bystander initiated CPR, EMS was called to the scene, further CPR was administered to the patient at the scene and he was subsequently transferred to the emergency room for further evaluation Hospital Course Hospital Course: When patient arrived emergency room CTA chest was done there was no pulmonary embolus found on the CTA chest, he has history of COPD this CAT scan further confirmed the COPD with upper lobe bullous emphysema. He was found to be anemic with hemoglobin of 7, he was transfused with 2 units of packed red blood cells with improvement in hemoglobin. A 2D echo was also done on this admission it was a difficult study with many suboptimal images. 2D echo showed a normal ejection fraction of left ventricle, there was mild concentric hypertrophy of left ventricle, the Doppler measurements suggest pseudonormalization left ventricle relaxation consistent with grade 2 diastolic dysfunction also found was mild right ventricular systolic pressure. Patient was seen on this admission by many specialties including pulmonary, cardiology, hematology. After blood transfusion there was a slight decrease in hemoglobin because of these consultation was requested from GI, Dr. Orellana, he underwent upper endoscopy and colonoscopy of the GI tract showed angiodysplasia in the duodenum or proximal jejunum, cecal angiodysplasia, left-sided diverticulosis and esophageal candidiasis. The angiodysplasia were cauterized. So it seems that patient had episode of loss of consciousness due to severe anemia secondary to chronic blood loss from angiodysplasia of the GI tract involving multiple segments the GI tract including duodenum, jejunum and cecum. Physical Exam Vital Signs: Temp Pulse Resp BP Pulse Ox 98.1 F 67 21 H 154/75 H 90 L 08/25/17 08:51 08/25/17 08:51 08/25/17 08:51 08/25/17 08:51 08/25/17 08:51 General appearance: PRESENT: no acute distress, well-developed, well-nourished Head exam: PRESENT: atraumatic, normocephalic Eye exam: PRESENT: conjunctiva pink, EOMI, PERRLA Ear exam: PRESENT: normal external ear exam Mouth exam: PRESENT: moist, tongue midline Neck exam: PRESENT: full ROM Respiratory exam: PRESENT: clear to auscultation chetan Cardiovascular exam: PRESENT: RRR, +S1, +S2 Vascular exam: PRESENT: normal capillary refill GI/Abdominal exam: PRESENT: normal bowel sounds, soft Rectal exam: PRESENT: deferred Neurological exam: PRESENT: alert, CN II-XII grossly intact Psychiatric exam: PRESENT: appropriate affect, normal mood Skin exam: PRESENT: dry, intact, warm Results Laboratory Results: 08/25/17 04:10 08/24/17 21:35 08/20/17 08/20/17 08/20/17 17:15 17:15 23:15 Creatine Kinase 480 H 559 H CK-MB (CK-2) 14.60 H Troponin I < 0.012 08/20/17 08/21/17 08/21/17 23:15 05:12 05:12 Creatine Kinase 572 H CK-MB (CK-2) 13.90 H 11.00 H Troponin I < 0.012 < 0.012 Impressions: Chest X-Ray 08/20/17 12:17 IMPRESSION: NO SIGNIFICANT RADIOGRAPHIC FINDING IN THE CHEST. Head CT 08/20/17 12:17 IMPRESSION: 1. Chronic appearing intracranial changes. No acute abnormality. EVIDENCE OF ACUTE STROKE: NO. Pertinent positive or negative findings of the imaging study reported as a CRITICAL EXAM to ER PROVIDER at11:49 on 08/20/2017. Category of Critical Exam: Stroke alert. Chest/Abdomen CTA 08/20/17 13:08 IMPRESSION: 1. Limiting motion. 2. COPD. 3. No gross pulmonary embolus. Head MRI 08/20/17 13:56 IMPRESSION: Right occipital encephalomalacia consistent with sequela of remote ischemic injury. Background of chronic microvascular and age-related involutional change. EVIDENCE OF ACUTE STROKE: NO. Abdomen Ultrasound 08/20/17 14:44 IMPRESSION: Limited grossly negative study without acute or suspicious abdominal abnormality visualized at ultrasound.
== END 2017-08-25 10:57 | disposition home or self-care (01) | DRG 987 ==
LOC: ER 12:11 → EH 14:49 → ICU 17:06 → 3N 08-21 15:29
PROVIDERS: ADMIT Internal Medicine; ATTEND Internal Medicine
PROC: 30233N1 Transfusion of Nonautologous Red Blood Cells into Peripheral Vein, Percutaneous Approach (ICD-10-PCS; 2017-08-20)
PROC: 0D5A8ZZ Destruction of Jejunum, Via Natural or Artificial Opening Endoscopic (ICD-10-PCS; principal; 2017-08-24 18:00)
PROC: 0D5H8ZZ Destruction of Cecum, Via Natural or Artificial Opening Endoscopic (ICD-10-PCS; 2017-08-24 18:00)
PROC: 0D598ZZ Destruction of Duodenum, Via Natural or Artificial Opening Endoscopic (ICD-10-PCS; 2017-08-24 18:00)
DX: D50.0 Iron deficiency anemia secondary to blood loss (chronic) (principal); K55.21 Angiodysplasia of colon with hemorrhage; K31.811 Angiodysplasia of stomach and duodenum with bleeding; B37.81 Candidal esophagitis; R55 Syncope and collapse; J61 Pneumoconiosis due to asbestos and other mineral fibers; K57.30 Diverticulosis of large intestine without perforation or abscess without bleeding; K64.8 Other hemorrhoids; J43.1 Panlobular emphysema; Z79.899 Other long term (current) drug therapy; F17.210 Nicotine dependence, cigarettes, uncomplicated
CPT/HCPCS: 36415; 36430; 36600; 43235; 43255; 45382; 70450; 70551; 71010; 71275; 76700; 80053; 82272; 82550; 82553; 82607; 82728; 82746; 82803; 83540; 83550; 84466; 84484; 85025; 85045; 85610; 85730; 86850; 86900; 86901; 86920; 87210; 93005; 93010; 93306; 93976; 94799; 99291; J0171; J1610; J1644; J2250; J2310; J2920; J3010; J3490; J7030; J7620; P9016; Q0138; S0164

== ENCOUNTER 2017-10-21 07:58 | Outpatient (CLI) | payer MEDICARE, BC ==
[2017-10-21] MEDS ORDERED: NORMAL SALINE 250 ML IV PRN (08:00)
[2017-10-21] MEDS ORDERED: FERUMOXYTOL 510 MG in NORMAL SALINE 100 ML IV PRN (08:00)
[2017-10-21 08:27] VITALS: BP 130/69
== END 2017-10-21 09:45 | disposition home or self-care (01) ==
LOC: 5TH 07:58 → II 07:58
PROVIDERS: ATTEND Internal Medicine
PROC: 3E033GC Introduction of Other Therapeutic Substance into Peripheral Vein, Percutaneous Approach (ICD-10-PCS; principal; 2017-10-21)
DX: D50.8 Other iron deficiency anemias (principal); K90.9 Intestinal malabsorption, unspecified
CPT/HCPCS: 96367; Q0138; 96365

== ENCOUNTER 2017-10-28 10:11 | Outpatient (CLI) | payer MEDICARE, BC ==
[~2017-10-28 10:11] MED LIST: FERUMOXYTOL (NON-ESRD) 510 MG/NS 100 ML IV PRN; NORMAL SALINE 250 ML IV PRN
[2017-10-28 10:36] VITALS: BP 138/69
== END 2017-10-28 11:18 | disposition home or self-care (01) ==
LOC: II 10:11
PROVIDERS: ATTEND Internal Medicine
PROC: 3E033GC Introduction of Other Therapeutic Substance into Peripheral Vein, Percutaneous Approach (ICD-10-PCS; principal; 2017-10-28)
DX: D50.8 Other iron deficiency anemias (principal); K90.9 Intestinal malabsorption, unspecified
CPT/HCPCS: 96365; Q0138

== ENCOUNTER → 2018-05-10 | Outpatient (CLI) | payer MEDICARE, BC ==
--- NOTE | 2018-05-10 13:00 | RADIOLOGY REPORT (SQ) ---
EXAM DESCRIPTION: CT CHEST WITHOUT COMPLETED DATE/TIME: 05/10/2018 12:45 pm REASON FOR STUDY: PULMONARY INFILTRATE (R91.8) R91.8 OTHER NONSPECIFIC ABNORMAL FINDING OF LUNG FIE LD COMPARISON: CTA chest 08/20/2017 TECHNIQUE: CT scan performed of the chest without intravenous contrast. Images reviewed with lung, soft tissue and bone windows. Reconstructed coronal and sagittal MPR images reviewed. All images st ored on PACS. All CT scanners at this facility use dose modulation, iterative reconstruction, and/or weight based d osing when appropriate to reduce radiation dose to as low as reasonably achievable (ALARA). [facility]: Dose Right [facility]: CareDose [facility]: Dose Right [facility]: Teradose 4D [facility]: Smart [employer] RADIATION DOSE: CT Rad equipment meets quality standard of care and radiation dose reduction techniq ues were employed. CTDIvol: 9.8 mGy. DLP: 366 mGy-cm. mGy. LIMITATIONS: No technical limitations. FINDINGS: LUNGS AND PLEURA: Centrilobular emphysema. No infiltrates. No pleural effusion. No mass es. HILAR AND MEDIASTINAL STRUCTURES: No identified masses or abnormal nodes. No obvious aneurysm. HEART AND VASCULAR STRUCTURES: No aneurysm. No pericardial effusion. Aortic and coronary atheroscle rosis. UPPER ABDOMEN: No significant findings. Limited exam. THYROID AND OTHER SOFT TISSUES: No masses. No adenopathy. BONES: Cannot exclude mid sternal fracture versus motion artifact. No osseous lesions are seen. HARDWARE: None in the chest. OTHER: No other significant findings. IMPRESSION: Centrilobular emphysema. Aortic and coronary atherosclerosis. Cannot exclude a mid fritz rnal fracture versus motion artifact. TECHNICAL DOCUMENTATION: JOB ID: [id number] Quality ID # [id number]: Final reports with documentation of one or more dose reduction techniques (e.g., Au tomated exposure control, adjustment of the mA and/or kV according to patient size, use of iterative reconstruction technique) 2010 [employer]- All Rights Reserved Reading location - IP/workstation name: [email or web address]
== END ==
LOC: RAD 12:28
PROVIDERS: ATTEND Internal Medicine Critical Care Medicine
DX: R91.8 Other nonspecific abnormal finding of lung field (principal)
CPT/HCPCS: 71250

== ENCOUNTER → 2018-09-29 | Outpatient (CLI) | payer MEDICARE, BC ==
--- NOTE | 2018-09-29 13:49 | RADIOLOGY REPORT (SQ) ---
EXAM DESCRIPTION: MRI HEAD COMBO COMPLETED DATE/TIME: 09/29/2018 1:33 pm REASON FOR STUDY: SENSORINEURAL HEARING LOSS OF RIGHT EAR H90.5 UNSPECIFIED SENSORINEURAL HEARING L OSS COMPARISON: CT brain 08/20/2017 MRI brain 08/20/2017 TECHNIQUE: Multiplanar imaging includes noncontrasted T1, T2, FLAIR, diffusion with ADC map and post gadolinium contrast T1 sequences. Images stored on PACS. Additional thin section axial T2 images through the internal auditory canals and inner ear structures , additional thin section axial and coronal pre and postcontrast T1 weighted images through the inter nal auditory canals and inner ear structures. CONTRAST TYPE AND DOSE: 15 mL Dotarem. RENAL FUNCTION: GFR > 60. LIMITATIONS: None. FINDINGS: ANATOMY: No developmental anomalies. Normal vascular flow voids. Pituitary fossa normal. CSF SPACES: Normal in size and contour. No hemorrhage. CEREBRUM: Sulci and gyri normal in size and contour. 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 No acute ischemic change. No evidence of acute hemorrhage, mass, or extraaxial fluid c ollection. No abnormal enhancement post contrast. POSTERIOR FOSSA: No signal alteration. No hemorrhage. No edema, masses, or mass effect. Internal bakari tory canals, cerebellopontine angles, mastoids normal. No enhancing lesions. No abnormal enhancement post contrast. DIFFUSION IMAGING: Negative for acute or subacute infarction. ORBITS: No masses. Globes post cataract surgery bilaterally. PARANASAL SINUSES: No fluid levels. Mucosa normal. OTHER: No other significant finding. IMPRESSION: Age-appropriate white matter disease. Old right parietal infarct. No abnormal masses or enhancement along the internal auditory canals or inner ear structures. EVIDENCE OF ACUTE STROKE: NO. TECHNICAL DOCUMENTATION: JOB ID: [id number] [employer]- All Rights Reserved Reading location - IP/workstation name: [email or web address]
== END ==
LOC: RAD 11:18
PROVIDERS: ATTEND Otolaryngology
DX: H90.5 Unspecified sensorineural hearing loss (principal); R90.82 White matter disease, unspecified; Z86.73 Personal history of transient ischemic attack (TIA), and cerebral infarction without residual deficits
CPT/HCPCS: 82565; 70553; A9576

== ENCOUNTER 2018-12-29 12:50 | Inpatient (IN) | payer MEDICARE, BC ==
[2018-12-29] MEDS: IPRATROPIUM/ALBUTEROL 0.5-2.5 MG/3 ML AMPUL NEB SCH ×4 (14:06→23:25)
[2018-12-29 14:15] LABS: HEMATOCRIT 44.7 % (37.9-51.0); MEAN CORPUSCULAR HEMOGLOBIN 30.7 pg (27.0-33.4); MEAN CORPUSCULAR HGB CONC 33.5 g/dL (32.0-36.0); MEAN CORPUSCULAR VOLUME 92 fl (80-97); PLATELET COUNT 208 10^3/uL (150-450); RED BLOOD COUNT 4.88 10^6/uL (4.35-5.55); RED CELL DISTRIBUTION WIDTH 13.9 % (11.5-14.0); WHITE BLOOD COUNT 5.9 10^3/uL (4.0-10.5)
[2018-12-29 14:30] LABS: ALANINE AMINOTRANSFERASE 22 U/L (21-72); ALBUMIN 4.5 g/dL (3.5-5.0); ALKALINE PHOSPHATASE 69 U/L (38-126); ANION GAP 7 (5-19); ASPARTATE AMINO TRANSFERASE 23 U/L (17-59); BILIRUBIN,DIRECT 0.4 mg/dL (0.0-0.4); BILIRUBIN,TOTAL 0.8 mg/dL (0.2-1.3); BLOOD UREA NITROGEN 10 mg/dL (7-20); CALCIUM 10.3 mg/dL (8.4-10.2); CARBON DIOXIDE 30 mmol/L (22-30); CHLORIDE 103 mmol/L (98-107); GLUCOSE 112 mg/dL (75-110); POTASSIUM 4.8 mmol/L (3.6-5.0); SODIUM 140.4 mmol/L (137-145); TOTAL PROTEIN 7.8 g/dL (6.3-8.2)
--- NOTE | 2018-12-29 16:50 | RADIOLOGY REPORT (SQ) ---
EXAM DESCRIPTION: CHEST SINGLE VIEW COMPLETED DATE/TIME: 12/29/2018 4:04 pm REASON FOR STUDY: Admission COMPARISON: 09/20/2015 EXAM PARAMETERS: NUMBER OF VIEWS: One view. TECHNIQUE: Single frontal radiographic view of the chest acquired. RADIATION DOSE: NA LIMITATIONS: None. FINDINGS: LUNGS AND PLEURA: No opacities, masses or pneumothorax. No pleural effusion. Stable chron ic emphysematous changes are present. MEDIASTINUM AND HILAR STRUCTURES: No masses. Contour normal. HEART AND VASCULAR STRUCTURES: Heart normal in size. Normal vasculature. BONES: No acute findings. HARDWARE: None in the chest. OTHER: No other significant finding. IMPRESSION: NO ACUTE RADIOGRAPHIC FINDING IN THE CHEST. Stable chronic emphysematous changes. TECHNICAL DOCUMENTATION: JOB ID: [id number] [employer]- All Rights Reserved Reading location - IP/workstation name: [email or web address]
[2018-12-29] MEDS: ENOXAPARIN SODIUM INJ 40 MG/0.4 ML DISP.SYRIN SUBCUT SCH (18:30)
[2018-12-29] MEDS: METHYLPREDNISOLONE INJ 125 MG/2 ML SDV IV SCH (18:31)
[2018-12-29] MEDS: LEVOFLOXACIN 750 MG/D5W RTU 750 MG/150 ML RTUPB IV SCH (18:32)
[2018-12-29 18:59] LABS: APPEARANCE,URINE SLIGHTLY-CLOUDY; BILIRUBIN,URINE NEGATIVE (NEGATIVE); COLOR,URINE YELLOW; GLUCOSE, URINE NEGATIVE (NEGATIVE); KETONES,URINE 20 mg/dL (NEGATIVE); LEUKOCYTE ESTERASE,URINE NEGATIVE (NEGATIVE); NITRITE,URINE NEGATIVE (NEGATIVE); PROTEIN,URINE NEGATIVE (NEGATIVE); URINE SPECIFIC GRAVITY 1.015
--- NOTE | 2018-12-29 22:41 | PDOC H&P ---
History of Present Illness Admission Date/PCP: 12/29/18 12:50 LUIS LOMELI DO History of Present Illness: BROCK MORGAN is a 83 year old male, He has chronic respiratory failure due to very severe chronic obstructive lung disease on home oxygen he came to the office for evaluation of increased shortness of breath, in the office he was evaluated the oxygen saturation was 85% on 3 L via nasal cannula on auscultation there was audible wheeze, he was admitted directly from the office to the hospital for further evaluation Past Medical History Cardiac Medical History: Reports: Hypertension - CONTROLLED Pulmonary Medical History: Reports: Bronchitis, Chronic Obstructive Pulmonary Disease (COPD) Neurological Medical History: Reports: Seizures Musculoskeltal Medical History: Reports: Arthritis Hematology: Reports: Anemia - TAKES IRON Past Surgical History Past Surgical History: Reports: Other - bilateral cataracts removed Denies: Pacemaker Social History Smoking Status: Former Smoker Frequency of Alcohol Use: None Hx Recreational Drug Use: No Drugs: None Hx Prescription Drug Abuse: No Family History Family History: Hypertension Parental Family History Reviewed: Yes Children Family History Reviewed: Yes Sibling(s) Family History Reviewed.: Yes Medication/Allergy Home Medications: Albuterol Sulfate [Proair HFA Inhalation Aerosol 8.5 gm MDI] 2 puff IH Q4HP PRN 12/29/18 Albuterol Sulfate [Proventil 0.5% Neb 2.5 mg/0.5 ml Vial.neb] 1 vial NEB TID 12/29/18 Finasteride [Proscar 5 mg Tablet] 5 mg PO DAILY 12/29/18 Fluticasone/Umeclidin/Vilanter [Trelegy 100-62.5-25 Mcg Ellipta 14 Dose/Dpi] 1 p uff IH DAILY 12/29/18 Glucosamine/D3/Boswellia Sara [Osteo Bi-Flex Tablet] 1 tab PO DAILY 12/29/18 Simvastatin [Zocor 20 mg Tablet] 20 mg PO QHS 12/29/18 Tamsulosin HCl [Flomax 0.4 mg Cap.sr] 0.4 mg PO DAILY 12/29/18 Prednisone 40 mg PO DAILY #5 tablet 12/31/18 Allergies/Adverse Reactions: No Known Allergies Allergy (Verified 01/10/14 09:13) Review of Systems Constitutional: ABSENT: chills, fever(s), headache(s), weight gain, weight loss Eyes: ABSENT: visual disturbances Ears: ABSENT: hearing changes Cardiovascular: ABSENT: chest pain, dyspnea on exertion, edema, orthropnea, palpitations Respiratory: PRESENT: cough, dyspnea. ABSENT: hemoptysis Gastrointestinal: ABSENT: abdominal pain, constipation, diarrhea, hematemesis, hematochezia, nausea, vomiting Genitourinary: ABSENT: dysuria, hematuria Musculoskeletal: ABSENT: joint swelling Integumentary: ABSENT: rash, wounds Neurological: ABSENT: abnormal gait, abnormal speech, confusion, dizziness, focal weakness, syncope Psychiatric: ABSENT: anxiety, depression, homidical ideation, suicidal ideation Endocrine: ABSENT: cold intolerance, heat intolerance, menstrual abnormalities, polydipsia, polyuria Hematologic/Lymphatic: ABSENT: easy bleeding, easy bruising, lymphadenopathy Physical Exam Vital Signs: Temp Pulse Resp BP Pulse Ox 98.3 F 91 18 131/81 H 94 12/29/18 15:22 12/29/18 19:58 12/29/18 19:58 12/29/18 15:22 12/29/18 19:58 Intake & Output 12/28/18 12/29/18 12/30/18 06:59 06:59 06:59 Intake Total 600 Output Total 200 Balance 400 Weight 68.8 kg General appearance: PRESENT: mild distress Eye exam: PRESENT: PERRLA Ear exam: PRESENT: normal external ear exam Neck exam: PRESENT: full ROM Respiratory exam: PRESENT: wheezes Cardiovascular exam: PRESENT: RRR, +S1, +S2 Pulses: PRESENT: normal dorsalis pedis pul, +2 pedal pulses bilateral Vascular exam: PRESENT: normal capillary refill GI/Abdominal exam: PRESENT: normal bowel sounds, soft Rectal exam: PRESENT: deferred Neurological exam: PRESENT: alert, CN II-XII grossly intact Psychiatric exam: PRESENT: appropriate affect, normal mood Skin exam: PRESENT: dry, intact, warm Results Laboratory Results: 12/29/18 13:57 12/29/18 13:57 12/29/18 12/29/18 12/29/18 13:57 13:57 17:30 WBC 5.9 RBC 4.88 Hgb 15.0 Hct 44.7 MCV 92 MCH 30.7 MCHC 33.5 RDW 13.9 Plt Count 208 Sodium 140.4 Potassium 4.8 Chloride 103 Carbon Dioxide 30 Anion Gap 7 BUN 10 Creatinine 0.59 Est GFR ( Amer) > 60 Est GFR (Non-Af Amer) > 60 Glucose 112 H Calcium 10.3 H Total Bilirubin 0.8 AST 23 ALT 22 Alkaline Phosphatase 69 Total Protein 7.8 Albumin 4.5 Urine Color YELLOW Urine Appearance SLIGHTLY-CLOUDY Urine pH 8.0 Ur Specific [place] 1.015 Urine Protein NEGATIVE Urine Glucose (UA) NEGATIVE Urine Ketones 20 H Urine Blood NEGATIVE Urine Nitrite NEGATIVE Ur Leukocyte Esterase NEGATIVE Urine WBC (Auto) 0 Urine RBC (Auto) 1 Impressions: Chest X-Ray 12/29/18 00:00 IMPRESSION: NO ACUTE RADIOGRAPHIC FINDING IN THE CHEST. Stable chronic emphysematous changes. Assessment & Plan - Diagnosis (1) Acute hypoxemic respiratory failure Is this a current diagnosis for this admission?: Yes Plan: He has acute on chronic hypoxemic respiratory failure on home oxygen at 2 L, he does not presently require noninvasive positive pressure ventilation with BiPAP (2) COPD with acute exacerbation Is this a current diagnosis for this admission?: Yes Plan: Patient will be treated with IV Solu-Medrol 125 mg every 8 hours bronchodilators
[2018-12-29] MEDS ORDERED: BOSWELLIA SERRA PO SCH (22:45)
[2018-12-29] MEDS ORDERED: D3 PO SCH (22:45)
[2018-12-29] MEDS ORDERED: GLUCOSAMINE PO SCH (22:45)
[2018-12-29] MEDS ORDERED: SIMVASTATIN 10 MG TABLET PO ONE (23:00)
[2018-12-30] MEDS: METHYLPREDNISOLONE INJ 125 MG/2 ML SDV IV SCH ×4 (00:53→21:25)
[2018-12-30] MEDS: IPRATROPIUM/ALBUTEROL 0.5-2.5 MG/3 ML AMPUL NEB SCH ×6 (02:10→19:38)
[2018-12-30] MEDS: TAMSULOSIN HCL 0.4 MG CAP.SR.24H PO SCH (09:44)
[2018-12-30] MEDS: FINASTERIDE 5 MG TABLET PO SCH (09:45)
[2018-12-30] MEDS: ENOXAPARIN SODIUM INJ 40 MG/0.4 ML DISP.SYRIN SUBCUT SCH (09:45)
[2018-12-30] MEDS: FLUTICASONE/UMECLIDIN/VILANTER 100-62.5-25 MCG/DOSE IH SCH (09:52)
[2018-12-30] MEDS: LEVOFLOXACIN 750 MG/D5W RTU 750 MG/150 ML RTUPB IV SCH (17:20)
--- NOTE | 2018-12-30 20:31 | PDOC PROGRESS REPORT ---
Subjective Progress Note for:: 12/30/18 Subjective:: Patient was admitted yesterday for the management of acute COPD exacerbation associated with acute hypoxemic respiratory failure Reason For Visit: ACUTE HYPOXEMIA RESPIRATORY FAILURE,O2 SATURATION Physical Exam Vital Signs: Temp Pulse Resp BP Pulse Ox 98.1 F 78 18 110/67 99 12/30/18 20:00 12/30/18 20:00 12/30/18 20:00 12/30/18 20:00 12/30/18 20:00 Intake & Output 12/29/18 12/30/18 12/31/18 06:59 06:59 06:59 Intake Total 600 1114 Output Total 200 970 Balance 400 144 Weight 68.8 kg General appearance: PRESENT: no acute distress Eye exam: PRESENT: PERRLA Respiratory exam: PRESENT: wheezes Cardiovascular exam: PRESENT: +S1, +S2 GI/Abdominal exam: PRESENT: soft Neurological exam: PRESENT: alert Results Laboratory Results: 12/29/18 13:57 12/29/18 13:57 12/29/18 23:37 PTH Intact 66.3 H Impressions: Chest X-Ray 12/29/18 00:00 IMPRESSION: NO ACUTE RADIOGRAPHIC FINDING IN THE CHEST. Stable chronic emphysematous changes. Assessment & Plan - Diagnosis (1) Acute hypoxemic respiratory failure Is this a current diagnosis for this admission?: Yes Plan: Continue oxygen via nasal cannula (2) COPD with acute exacerbation Is this a current diagnosis for this admission?: Yes Plan: Continue IV Solu-Medrol, bronchodilators
[2018-12-30] MEDS ORDERED: SIMVASTATIN 10 MG TABLET PO SCH (22:00)
[2018-12-31] MEDS: IPRATROPIUM/ALBUTEROL 0.5-2.5 MG/3 ML AMPUL NEB SCH ×3 (03:58→13:42)
[2018-12-31] MEDS: METHYLPREDNISOLONE INJ 125 MG/2 ML SDV IV SCH ×2 (05:47→14:10)
[2018-12-31] MEDS: FINASTERIDE 5 MG TABLET PO SCH (10:06)
[2018-12-31] MEDS: FLUTICASONE/UMECLIDIN/VILANTER 100-62.5-25 MCG/DOSE IH SCH (10:06)
[2018-12-31] MEDS: TAMSULOSIN HCL 0.4 MG CAP.SR.24H PO SCH (10:06)
[2018-12-31] MEDS: ENOXAPARIN SODIUM INJ 40 MG/0.4 ML DISP.SYRIN SUBCUT SCH (10:06)
[2018-12-31 15:59] VITALS: BP 148/61
--- NOTE | 2018-12-31 16:15 | PDOC DISCHARGE SUMMARY ---
General - Admit/Disc Date/PCP Admission Date/Primary Care Provider: 12/29/18 12:50 LUIS LOMELI, Discharge Date: 12/31/18 - Discharge Diagnosis (1) Acute hypoxemic respiratory failure Is this a current diagnosis for this admission?: Yes (2) COPD with acute exacerbation Is this a current diagnosis for this admission?: Yes - Additional Information Prescriptions: Prednisone 40 mg PO DAILY #5 tablet Home Medications: Albuterol Sulfate [Proair HFA Inhalation Aerosol 8.5 gm MDI] 2 puff IH Q4HP PRN 12/29/18 Albuterol Sulfate [Proventil 0.5% Neb 2.5 mg/0.5 ml Vial.neb] 1 vial NEB TID 12/29/18 Finasteride [Proscar 5 mg Tablet] 5 mg PO DAILY 12/29/18 Fluticasone/Umeclidin/Vilanter [Trelegy 100-62.5-25 Mcg Ellipta 14 Dose/Dpi] 1 puff IH DAILY 12/29/18 Glucosamine/D3/Boswellia Sara [Osteo Bi-Flex Tablet] 1 tab PO DAILY 12/29/18 Simvastatin [Zocor 20 mg Tablet] 20 mg PO QHS 12/29/18 Tamsulosin HCl [Flomax 0.4 mg Cap.sr] 0.4 mg PO DAILY 12/29/18 Prednisone 40 mg PO DAILY #5 tablet 12/31/18 History of Present Illness History of Present Illness: BROCK MORGAN is a 83 year old male, He has chronic respiratory failure due to very severe chronic obstructive lung disease on home oxygen he came to the office for evaluation of increased shortness of breath, in the office he was evaluated the oxygen saturation was 85% on 3 L via nasal cannula on auscultation there was audible wheeze, he was admitted directly from the office to the hospital for further evaluation Hospital Course Hospital Course: Patient was admitted for the management of acute COPD exacerbation, he was treated with IV Solu-Medrol, bronchodilators, he feels much better, he was advised not to use oxygen more than 3 L/min because of the potential to suppress hypoxic drive that is necessary to control respiratory system Physical Exam Vital Signs: Temp Pulse Resp BP Pulse Ox 98.6 F 78 18 136/51 H 98 12/31/18 11:48 12/31/18 14:00 12/31/18 13:43 12/31/18 11:48 12/31/18 13:43 Intake & Output 12/30/18 12/31/18 01/01/19 06:59 06:59 06:59 Intake Total 600 1414 Output Total 200 970 Balance 400 444 Weight 68.8 kg 69.7 kg General appearance: PRESENT: no acute distress Head exam: PRESENT: atraumatic, normocephalic Eye exam: PRESENT: PERRLA. ABSENT: scleral icterus Mouth exam: PRESENT: moist, tongue midline Neck exam: PRESENT: full ROM Respiratory exam: PRESENT: clear to auscultation chetan Cardiovascular exam: PRESENT: RRR, +S1, +S2 Vascular exam: PRESENT: normal capillary refill GI/Abdominal exam: PRESENT: normal bowel sounds, soft Rectal exam: PRESENT: deferred Neurological exam: PRESENT: alert, awake, oriented to person, oriented to place, oriented to time, oriented to situation, CN II-XII grossly intact Psychiatric exam: PRESENT: appropriate affect, normal mood Skin exam: PRESENT: dry, intact, warm Results Laboratory Results: 12/29/18 13:57 12/29/18 13:57 12/29/18 17:30 Clean Catch Midstream Urine Culture - Final NO GROWTH 2 DAYS Impressions: Chest X-Ray 12/29/18 00:00 IMPRESSION: NO ACUTE RADIOGRAPHIC FINDING IN THE CHEST. Stable chronic emphysematous changes. Qualifiers - * PATIENT BEING DISCHARGED WITH ANY OF THE FOLLOWING DIAGNOSIS: No
== END 2018-12-31 16:45 | disposition home or self-care (01) | DRG 189 ==
LOC: 4S 12:50
PROVIDERS: ADMIT Internal Medicine; ATTEND Internal Medicine
PROC: 3E0F73Z Introduction of Anti-inflammatory into Respiratory Tract, Via Natural or Artificial Opening (ICD-10-PCS; principal; 2018-12-29)
DX: J96.21 Acute and chronic respiratory failure with hypoxia (principal); J44.1 Chronic obstructive pulmonary disease with (acute) exacerbation; I10 Essential (primary) hypertension; M19.90 Unspecified osteoarthritis, unspecified site; D64.9 Anemia, unspecified; Z79.899 Other long term (current) drug therapy; Z99.81 Dependence on supplemental oxygen; Z98.42 Cataract extraction status, left eye; Z98.41 Cataract extraction status, right eye; Z87.891 Personal history of nicotine dependence; Z82.49 Family history of ischemic heart disease and other diseases of the circulatory system; Z79.52 Long term (current) use of systemic steroids
CPT/HCPCS: 36415; 71045; 80048; 80076; 81001; 83970; 85027; 87040; 87086; 94640; J1650; J1956; J2930; J3490; J7620

== ENCOUNTER 2019-11-06 16:15 | Day surgery (SDC) | payer MEDICARE, BC ==
[2019-11-06] MEDS ORDERED: DIPHENHYDRAMINE HCL 50 MG/ML VIAL ONE (17:30)
[2019-11-06] MEDS ORDERED: ONDANSETRON HCL INJ/PF 4 MG/2 ML SDV ONE (17:30)
[2019-11-06] MEDS ORDERED: FENTANYL CITRATE INJ/PF 100 MCG/2 ML AMPUL ONE (17:30)
[2019-11-06] MEDS ORDERED: GLUCAGON,HUMAN RECOMB 1 MG INJ ONE (17:31)
[2019-11-06] MEDS ORDERED: NALOXONE HCL INJ/PF 0.4 MG/1 ML SDV ONE (17:31)
[2019-11-06] MEDS ORDERED: MIDAZOLAM 2 MG/2 ML INJ ONE (17:31)
[2019-11-06] MEDS ORDERED: EPINEPHRINE INJ 1 MG/10 ML DISP.SYRIN ONE (17:31)
[2019-11-06] MEDS ORDERED: FLUMAZENIL INJ 0.5 MG/5 ML VIAL ONE (17:31)
--- NOTE | 2019-11-06 18:52 | Operative Report ---
Operative Report DATE OF SURGERY: 11/06/19 Operative Report: Pre-op diagnosis: History of iron deficiency anemia and GI angiodysplasia Post-op diagnosis: 1. Small angiodysplasia in the stomach and jejunum 2. Cecal angiodysplasia 3. Pancolonic diverticulosis Surgery: Upper endoscopy and Colonoscopy and argon plasma coagulation Medications: Versed 2mg, Fentanyl 50 Mcg IV push Tissue removed: None Procedure: After informed consent obtained from patient, patient's pharynx was sprayed with Hurricane and conscious sedation was achieved. The upper endoscope was then inserted into the esophagus under direct vision and advanced into the stomach and further into the duodenum. The endoscope was inserted up to 80 cm beyond the ligament of Treitz. Detailed examination of the duodenum, stomach and the esophagus was then performed. A digital rectal examination was performed and this was unremarkable. The c olonoscope was inserted into the rectum and advanced to the cecum. The appendiceal orifice and the terminal ileum were both identified. The mucosa was examined into details as the colonoscope was slowly pulled out of the patient. The endoscope was retroflexed in the rectum. Patient tolerated the procedure well. Findings Esophagus: Normal Stomach: 2 tiny angiodysplasia cauterized in the gastric body Jejunum: 2 tiny angiodysplasia ablated in the proximal jejunum. Terminal ileum: Normal Cecum: Two 4 to 5 mm angiodysplasia as noted in the cecum and the proximal ascending colon. There were both ablated Ascending colon: Few diverticuli Transverse colon: Few diverticuli Descending colon: Multiple diverticuli Sigmoid colon: Multiple diverticuli Rectum: Normal except for internal hemorrhoids Plan: Follow-up H&H OPERATION: .
[2019-11-06 19:37] VITALS: BP 148/69
== END 2019-11-06 19:52 | disposition home or self-care (01) ==
LOC: END 16:15
PROVIDERS: ATTEND Internal Medicine Gastroenterology
DX: K92.1 Melena (principal); K55.20 Angiodysplasia of colon without hemorrhage; K57.30 Diverticulosis of large intestine without perforation or abscess without bleeding; E61.1 Iron deficiency; K64.9 Unspecified hemorrhoids; E78.00 Pure hypercholesterolemia, unspecified; J44.9 Chronic obstructive pulmonary disease, unspecified; D64.9 Anemia, unspecified
CPT/HCPCS: 43255; 45378; J2250; J3010; J0171; J1200; J1610; J2310; J2405; J3490